=== PATIENT | male | born 1960 | race Caucasian/White ===

== ENCOUNTER → 2018-07-26 08:18 | Outpatient (CLI) | payer OTHER, SELFPAY ==
[2018-07-26 10:35] LABS: ALB/GLOB Ratio 1.3 RATIO (0.9-2.4); AST(SGOT) 20 U/L (15-37); Alanine Aminotransfer ALT/SGPT 28 U/L (16-61); Alkaline Phosphatase 56 U/L (45-117); Anion Gap 9 (5-15); BUN 11 mg/dL (7-18); BUN/Creat Ratio 10.7 RATIO (10-20); Calcium,Total 8.8 mg/dL (8.5-10.1); Chloride 106 mmol/L (98-107); Cholesterol 184 mg/dL (200); Creatinine, Serum 1.03 mg/dL (0.70-1.30); EST Glomerular Filtration Rate 79 mL/min (>60); Est Glom Filt Rate - Afr Amer 96 mL/min (>60); Glucose 83 mg/dL (74-106); High Density Lipoprotein 45 mg/dL; PSA,Total- Diagnostic 1.32 ng/mL (0.0-4.0); Potassium 3.9 mmol/L (3.5-5.1); Sodium Level 142 mmol/L (136-145); Triglycerides 96 mg/dL; Very Low Density Lipoprotein 19 mg/dL (5-40)
== END ==
PROVIDERS: Family Provider Family Medicine; PCP Family Medicine; Referring Provider Family Medicine; Visit Provider Family Medicine
DX: Z00.00 Encounter for general adult medical examination without abnormal findings (principal); Z12.5 Encounter for screening for malignant neoplasm of prostate
CPT/HCPCS: 36415; 80053; 80061; 84153

== ENCOUNTER 2018-08-22 07:50 | Day surgery (SDC) | payer OTHER, SELFPAY ==
[2018-08-22] VITALS (7 sets, daily range): BP systolic 92–137; BP diastolic 56–86; PULSE 69–85; RESP 16–18; TEMP 36.1–36.5; O2SAT 96–100; BMI 24.3
--- NOTE | 2018-08-22 08:44 | PCM.HP.STD ---
Problem List (1) Screening for colon cancer Status: Acute History of Present Illness Date of Admission: 08/22/18 The patient is a 57 year old M who presents for screening colonoscopy. Past Medical History Allergies No Known Allergies Allergy (Verified 08/17/18 13:34) Home Medications: Ambulatory Orders Medication Instructions Recorded NK 08/17/18 Smoking Status: Never smoker - *Family History Maternal History Items: No pertinent history Review of Systems Cardiovascular: Denies: Chest Pain, Chest Pressure, Chest Tightness, Palpitations Respiratory: Denies: Cough, Hemoptysis, Shortness of breath at rest, Shortness of breath upon exertion, Wheezing Gastrointestinal: Denies: Abdominal Pain, Constipation, Diarrhea, Hematemesis, Nausea, Melena, Vomiting VTE Information - Inpt Only VTE Present on Admission: No VTE Mechan Device Prophylaxis: None VTE Pharm Prophylaxis ordered?: No Reason prophylaxis not ordered:: Treatment Not Indicated Patient Problems: Active and Suspected Problems Screening for colon cancer (Acute) - Physical Exam General: Alert, Oriented x3 Lungs: Clear to auscultation Cardiovascular: Regular rate, Regular Rhythm, No murmurs Abdomen: Bowel Sounds Present, Soft, Non Tender, Non-Distended Vital Signs Temp Pulse Resp BP Pulse Ox 97.5 F L 85 18 137/86 H 100 08/22/18 08:10 08/22/18 08:10 08/22/18 08:10 08/22/18 08:10 08/22/18 08:10 Oxygen Delivery Method Room Air Weight: 164 lb 14.492 oz Body Mass Index (BMI) 24.3 Assessment/Plan All Active Problems Screening for colon cancer (Acute) My plan is to perform a colonoscopy. Risk benefits to include bleeding possible injury to the colon which could require further operations. Patient is willing and understands risks. All questions asked were answered.
--- NOTE | 2018-08-22 09:00 | COLBX_PTH ---
PATIENT: YAEL CASH LOC: EN U#:[id number] AGE/SX: 57/M ROOM: RE08/22/[address]: Dr. Vipin Davis MD : 1960 BED: DIS: 08/22/2018 SPEC #: [id number] RECD: 08/22/18 10:30 STATUS: LELAND VELASQUEZ #: [id number] DAYANA: 08/22/18 09:[address]: Vipin Davis DEPT: SURGICAL PATHOLOGY RECD BY: Tomas Barron ENTERED: 08/22/18 14:56 SP TYPE: COLON BX OTHR DR: Dr. Sony Griffith MD Tissues: A - Cecum, NOS B - Rectum, NOS Procedures: Surgery Specimen Level IV HEADER OPERATION: Colonoscopy (MAC) PRE-OP DIAGNOSIS: Screening TISSUE SUBMITTED: A - Cecal polyp biopsy, B - Rectal polyp MICROSCOPIC DIAGNOSIS A. Cecal polyp, biopsy: Fragments of hyperplastic polyp. B. Rectal polyp, biopsy: Fragments of tubular adenoma. SHIRA:shani 08/23/18 MICROSCOPIC DESCRIPTION Slides are reviewed. GROSS DESCRIPTION A - Received in fixative is one container labeled with the patient's name and designated cecal polyp biopsy. The specimen consists of multiple irregular fragments of light paris soft tissue that in aggregate measure 1 x 0.3 x 0.1 cm. The specimen is totally submitted in one cassette. B - Received in fixative is one container labeled with the patient's name and designated rectal polyp. The specimen consists of two polypoid fragments measuring 0.5 and 0.8 cm in greatest dimension and in aggregate 1 x 0.5 x 0.3 cm. The specimen is totally submitted in one cassette. / SHIRA:shani 08/22/18 TC:1 CPT: 88198 x2
--- NOTE | 2018-08-22 09:12 | OP.ENDO_ITS ---
Patient Name: Thelma Mcgrath Procedure Date: 08/22/2018 8:43 AM Date of : 1960 Age: 57 Procedure: Colonoscopy Indications: Screening for colorectal malignant neoplasm Providers: Vipin Davis MD Medicines: See the Anesthesia note for documentation of the administered medications Patient Profile: This is a 57 year old male. Refer to note in patient chart for documentation of history and physical. Last Colonoscopy: none. The patient's first colonoscopy is today. Complications: No immediate complications. Procedure: Pre-Anesthesia Assessment: - Prior to the procedure, a History and Physical was performed, and patient medications and allergies were reviewed. The patient's tolerance of previous anesthesia was also reviewed. The risks and benefits of the procedure and the sedation options and risks were discussed with the patient. All questions were answered, and informed consent was obtained. Prior Anticoagulants: The patient has taken no previous anticoagulant or antiplatelet agents. ASA Grade Assessment: II - A patient with mild systemic disease. After reviewing the risks and benefits, the patient was deemed in satisfactory condition to undergo the procedure. After I obtained informed consent, the scope was passed under direct vision. Throughout the procedure, the patient's blood pressure, pulse, and oxygen saturations were monitored continuously. The adult colonoscope was introduced through the anus and advanced to the cecum, identified by appendiceal orifice and ileocecal valve. The colonoscopy was performed without difficulty. The patient tolerated the procedure well. The quality of the bowel preparation was good. Scope In: 8:55:11 AM Scope Withdrawal Time 0 hours 8 minutes 46 seconds Scope Out: 9:08:26 AM Total Procedure Duration Time 0 hours 13 minutes 15 seconds Findings: The perianal and digital rectal examinations were normal. Pertinent negatives include normal prostate (size, shape, and consistency). A 5 mm polyp was found in the cecum. The polyp was sessile. The polyp was removed with a jumbo cold forceps. Resection and retrieval were complete. A 9 mm polyp was found in the rectum. The polyp was sessile. The polyp was removed with a hot snare. Resection and retrieval were complete. A few small-mouthed diverticula were found in the sigmoid colon. The exam was otherwise without abnormality. Impression: - One 5 mm polyp in the cecum, removed with a jumbo cold forceps. Resected and retrieved. - One 9 mm polyp in the rectum, removed with a hot snare. Resected and retrieved. - Diverticulosis in the sigmoid colon. - The examination was otherwise normal. Recommendation: - Discharge patient to home. - Resume previous diet. - Continue present medications. - Await pathology results. - Repeat colonoscopy in 3 years for surveillance. - Return to my office in 1 week. Procedure Code(s): --- Professional --- 46164, Colonoscopy, flexible; with removal of tumor(s), polyp(s), or other lesion(s) by snare technique 18422, 59, Colonoscopy, flexible; with biopsy, single or multiple Diagnosis Code(s): --- Professional --- Z12.11, Encounter for screening for malignant neoplasm of colon D12.0, Benign neoplasm of cecum K62.1, Rectal polyp K57.30, Diverticulosis of large intestine without perforation or abscess without bleeding CPT copyright 2017 [place] [employer]. All rights reserved. The codes documented in this report are preliminary and upon sales applications engineer review may be revised to meet current compliance requirements. MD Vipin Ritchie MD 08/22/2018 9:12:02 AM This report has been signed electronically. Number of Addenda: 0 Note Initiated On: 08/22/2018 8:43 AM
== END 2018-08-22 10:13 | disposition home or self-care (01) ==
LOC: EN 07:50 → AC 07:51
PROVIDERS: Family Provider Family Medicine; PCP Family Medicine; Referring Provider Surgery; Visit Provider Surgery
PROC: 0DJD8ZZ Inspection of Lower Intestinal Tract, Via Natural or Artificial Opening Endoscopic (ICD-10-PCS; CPT 45378; principal; 2018-08-22 08:55)
DX: Z12.11 Encounter for screening for malignant neoplasm of colon (principal); D12.8 Benign neoplasm of rectum; K63.5 Polyp of colon; K57.30 Diverticulosis of large intestine without perforation or abscess without bleeding
CPT/HCPCS: 45380; 45385; 88305; J7120

== ENCOUNTER → 2021-03-18 07:25 | Outpatient (CLI) | payer OTHER, SELFPAY ==
[2021-03-18 10:22] LABS: Absolute Lymphocyte Count 1.12 X10^3/uL (0.83-4.51); Basophil# 0.02 X10^3/uL; Basophil% 0.3 % (0-1); Eosinophil# 0.09 X10^3/uL; Eosinophils% 1.1 % (0-5); Hematocrit 47.1 % (40-54); Hemoglobin 15.5 g/dL (13.0-16.5); Lymphocyte # 1.12 X10^3/ul (0.83-4.51); Lymphocyte % 14.2 % (19-41); Mean Corp Hgb Conc 32.9 g/dL (32-36); Mean Corpuscular Hgb 31.7 pg (27.0-32.0); Mean Corpuscular Volume 96.3 fL (80-94); Mean Platelet Vol. 9.7 fl (6.2-12.0); Monocyte# 0.65 X10^3/uL; Monocyte% 8.2 % (0-10); NRBC Flagged by Analyzer 0 % (0-5); Neutrophil # 5.96 X10^3/uL (2.7-7.7); Neutrophil % 75.7 % (47-70); Platelet Count 219 K/mm3 (150-450); RBC Distribution Width CV 13.2 % (11.6-14.6); RBC Distribution Width SD 47.2 fl (35.1-43.9); Red Blood Count 4.89 M/mm3 (4.6-6.2); White Blood Count 7.9 K/mm3 (4.4-11.0)
[2021-03-18 10:40] LABS: Cholesterol 167 mg/dL (200); High Density Lipoprotein 50 mg/dL; PSA,Total- Diagnostic 2.79 ng/mL (0.0-4.0); Thyroid Stim Hormone (TSH) 2.01 uIU/mL (0.358-3.74); Triglycerides 82 mg/dL; Very Low Density Lipoprotein 16 mg/dL (5-40)
[2021-03-22 12:08] LABS: Testosterone, Free 26.63 ng/dL (5.00-21.00)
[2021-03-22 12:26] LABS: Testosterone, % Free 3.49 % (1.50-4.20); Testosterone, Total 763 ng/dL (264-916)
== END ==
PROVIDERS: PCP Family Medicine; Referring Provider Family Medicine; Visit Provider Family Medicine
DX: Z00.00 Encounter for general adult medical examination without abnormal findings (principal); N52.9 Male erectile dysfunction, unspecified; Z80.42 Family history of malignant neoplasm of prostate
CPT/HCPCS: 36415; 80061; 84153; 84402; 84403; 84443; 85025

== ENCOUNTER 2021-08-08 07:30 | Day surgery (SDC) | payer OTHER, SELFPAY ==
[2021-08-08] VITALS (7 sets, daily range): BP systolic 94–129; BP diastolic 47–81; PULSE 59–71; RESP 16; TEMP 36.2–36.5; O2SAT 96–100; BMI 23.8
--- NOTE | 2021-08-08 07:41 | HP.PCM_ITS ---
HPI - General HPI Narrative YAEL CASH, is a 60 M who presents for surveillance colonoscopy. 3 years ago he had a tubular adenoma resected from the colon. Denies any bright red blood per rectum or melena. No abdominal pain. No unexpected weight loss. He otherwise feels well. PENDING SALE TO [facility] Medical History Diverticulosis Hyperplastic colon polyp Non-smoker Screening for colon cancer Tubular adenoma Home Medications NK 08/17/18 [History Last Taken Unknown] Allergy/AdvReac Type Severity Reaction Status Date / Time No Known Allergies Allergy Verified 08/01/21 11:54 Surgical History History of colonoscopy Hx of hernia repair Social History (Updated 08/29/18 @ 10:[address] Vipin Davis MD) Smoking Status: Never smoker second hand exposure: No alcohol intake: never substance use type: does not use caffeine: Yes what type of physical activity do you participate in: none ROS Constitutional Constitutional: Reports systems reviewed and no addt'l complaints, except as documented Cardiovascular Cardiovascular: Denies chest pain Respiratory/Chest Respiratory/Chest: Denies shortness of breath at rest Gastrointestinal Gastrointestinal: Denies abdominal pain, change in bowel habits, hematochezia or melena Physical Exam Const alert, oriented x3 and no apparent distress General Appearance: cooperative and comfortable Eyes General Eye: normal appearance of both eyes Neck General: normal visual inspection Chest inspection of chest normal Resp Effort and Inspection: able to speak in complete sentences and symmetric chest movement Auscultation: clear to auscultation bilaterally Cardio regular rate and regular rhythm GI soft to palpation, non-tender and non-distended Extremity no calf tenderness Neuro oriented x3 Psych thought process normal Results Lab / Micro Data Micro: Microbiology 08/07/21 08:34 Interface Orders SARS-CoV-2 Antigen (Rapid) - Final Procedure Criteria Elective Risks - COVID COVID Risk Discussion: Plan to proceed with a colonoscopy with possible biopsy or polypectomy as indicated. He is aware of the technique, benefit, risk and alternatives. He presents via open access. We will proceed as noted. Herminio Murrieta M.D., F.A.C.S.
[2021-08-08] MEDS: Lactated Ringers 1,000 ML 15 ML IV (08:08)
--- NOTE | 2021-08-08 09:34 | OP.COLON_ITS ---
Patient Name: Thelma Mcgrath Procedure Date: 08/08/2021 9:04 AM Date of : 1960 Age: 60 Procedure: Colonoscopy Indications: High risk colon cancer surveillance: Personal history of colonic polyps Providers: Herminio Murrieta MD Referring MD: Herminio Murrieta MD Medicines: See the Anesthesia note for documentation of the administered medications Patient Profile: Last Colonoscopy: 3 years ago. Complications: No immediate complications. Procedure: Pre-Anesthesia Assessment: - Prior to the procedure, a History and Physical was performed, and patient medications and allergies were reviewed. The patient's tolerance of previous anesthesia was also reviewed. The risks and benefits of the procedure and the sedation options and risks were discussed with the patient. All questions were answered, and informed consent was obtained. Prior Anticoagulants: The patient has taken no previous anticoagulant or antiplatelet agents. ASA Grade Assessment: II - A patient with mild systemic disease. After reviewing the risks and benefits, the patient was deemed in satisfactory condition to undergo the procedure. After I obtained informed consent, the scope was passed under direct vision. Throughout the procedure, the patient's blood pressure, pulse, and oxygen saturations were monitored continuously. The pediatric colonoscope was introduced through the anus and advanced to the cecum, identified by appendiceal orifice and ileocecal valve. The colonoscopy was performed without difficulty. The patient tolerated the procedure well. The quality of the bowel preparation was good. The terminal ileum and the appendiceal orifice were photographed. Scope In: 9:16:17 AM Scope Withdrawal Time 0 hours 6 minutes 49 seconds Scope Out: 9:29:04 AM Total Procedure Duration Time 0 hours 12 minutes 47 seconds Findings: The digital rectal exam findings include non-thrombosed internal hemorrhoids and internal hemorrhoids that prolapse with straining, but spontaneously regress to the resting position (Grade II). Pertinent negatives include normal prostate (size, shape, and consistency). The colon (entire examined portion) appeared normal. Impression: - Non-thrombosed internal hemorrhoids and internal hemorrhoids that prolapse with straining, but spontaneously regress to the resting position (Grade II) found on digital rectal exam. - The entire examined colon is normal. - No specimens collected. Recommendation: - Discharge patient to home. - Resume previous diet. - Continue present medications. - Repeat colonoscopy in 5 years for surveillance. Procedure Code(s): --- Professional --- 30615, Colonoscopy, flexible; diagnostic, including collection of specimen(s) by brushing or washing, when performed (separate procedure) Diagnosis Code(s): --- Professional --- Z86.010, Personal history of colonic polyps K64.1, Second degree hemorrhoids CPT copyright 2017 [place] [employer]. All rights reserved. The codes documented in this report are preliminary and upon clinical pharmacologist review may be revised to meet current compliance requirements. Herminio Murrieta MD 08/08/2021 9:33:31 AM This report has been signed electronically. Number of Addenda: 0 Note Initiated On: 08/08/2021 9:04 AM
--- NOTE | 2021-08-08 09:35 | OP.CCLET_ITS ---
08/08/2021 Sony Griffith [address] [facility] [address] [place] [address] Re : Colonoscopy procedure for [facility] Dear Dr. Griffith This procedure was performed on Sunday, August 08, 2021. My impressions and recommendations are as follows: Impressions : - Non-thrombosed internal hemorrhoids and internal hemorrhoids that prolapse with straining, but spontaneously regress to the resting position (Grade II) found on digital rectal exam. - The entire examined colon is normal. - No specimens collected. Recommendations : - Discharge patient to home. - Resume previous diet. - Continue present medications. - Repeat colonoscopy in 5 years for surveillance. My findings are described in the full procedure note, which is enclosed. If I can be of further assistance, please feel free to contact me at Doctor phone number(s): Work: . Sincerely, Herminio Murrieta MD 08/08/2021 9:33:31 AM This report has been signed electronically.
== END 2021-08-08 23:59 | disposition home or self-care (01) ==
LOC: EN 07:34 → AC 07:34
PROVIDERS: PCP Family Medicine; Referring Provider Surgery; Visit Provider Surgery
PROC: 0DJD8ZZ Inspection of Lower Intestinal Tract, Via Natural or Artificial Opening Endoscopic (ICD-10-PCS; CPT 45378; principal; 2021-08-08 08:40)
DX: Z12.11 Encounter for screening for malignant neoplasm of colon (principal); K64.1 Second degree hemorrhoids; Z86.010 Personal history of colon polyps
CPT/HCPCS: 87426; C9803; J7120; J2405

== ENCOUNTER → 2023-01-12 | Outpatient (CLI) | payer OTHER, SELFPAY ==
[2023-01-12 12:58] LABS: Cholesterol 215 mg/dL (200); Creatinine, Serum 0.97 mg/dL (0.70-1.30); EST Glomerular Filtration Rate 83 mL/min (>60); Est Glom Filt Rate - Afr Amer 101 mL/min (>60); High Density Lipoprotein 48 mg/dL; PSA,Total - Annual Screen 2.31 ng/mL (0.00-4.00); Triglycerides 100 mg/dL; Very Low Density Lipoprotein 20 mg/dL (5-40)
== END | disposition home or self-care (01) ==
PROVIDERS: PCP Family Medicine; Referring Provider Family Medicine; Visit Provider Family Medicine
DX: Z00.00 Encounter for general adult medical examination without abnormal findings (principal); Z13.220 Encounter for screening for lipoid disorders; Z80.42 Family history of malignant neoplasm of prostate
CPT/HCPCS: 36415; 80061; 82565; 84153; G0103

== ENCOUNTER 2023-11-25 16:53 | Outpatient (CLI) | payer OTHER, SELFPAY ==
[2023-11-25 18:36] LABS: PSA,Total- Diagnostic 2.14 ng/mL (0.0-4.0)
== END 2023-11-25 23:59 | disposition home or self-care (01) ==
PROVIDERS: PCP Family Medicine; Referring Provider Family Medicine; Visit Provider Family Medicine
DX: K63.5 Polyp of colon (principal); Z80.42 Family history of malignant neoplasm of prostate
CPT/HCPCS: 36415; 84153

== ENCOUNTER → 2024-11-28 | Outpatient (CLI) | payer OTHER, SELFPAY ==
[2024-11-28 11:20] LABS: AST(SGOT) 26 U/L (<=37); Alanine Aminotransfer ALT/SGPT 29 U/L (<=46); Albumin, Serum 4.6 g/dL (3.4-4.8); Alkaline Phosphatase 50 U/L (40-129); Anion Gap 10 (5-15); BUN 19 mg/dL (4-19); BUN/Creat Ratio 19.7 RATIO (10-20); Calcium,Total 9.5 mg/dL (7.6-11.0); Carbon Dioxide 25.2 mmol/L (21.0-32.0); Chloride 104 mmol/L (98-108); Cholesterol 205 mg/dL (<=200); Creatinine, Serum 0.97 mg/dL (0.70-1.20); EST Glomerular Filtration Rate 88 (>60); Globulin 2.2 g/dL (2.2-4.2); Glucose 88 mg/dL (70-99); High Density Lipoprotein 45 mg/dL; Low Density Lipoprotein Calc. 139 mg/dL; PSA,Total - Annual Screen 1.01 ng/mL (0.02-4.00); Protein, Total 6.8 g/dL (5.9-8.4); Sodium Level 140 mmol/L (133-145); Total Bilirubin 0.74 mg/dL (0.00-1.30); Triglycerides 107 mg/dL; Very Low Density Lipoprotein 21 mg/dL (5-40); cholesterol:hdl ratio screen 4.55
== END | disposition home or self-care (01) ==
LOC: MFPLAB 09:10
PROVIDERS: PCP Family Medicine; Referring Provider Family Medicine; Visit Provider Family Medicine
DX: E78.5 Hyperlipidemia, unspecified (principal); Z12.5 Encounter for screening for malignant neoplasm of prostate
CPT/HCPCS: 36415; 80053; 80061; 84153; G0103

== ENCOUNTER → 2025-01-29 | Outpatient (CLI) | payer OTHER, SELFPAY ==
[2025-01-29 17:58] LABS: Hematocrit 43.3 % (40-54); Hemoglobin 14.8 g/dL (13.0-16.5); Mean Corp Hgb Conc 34.2 g/dL (32-36); Mean Corpuscular Volume 90.4 fL (80-94); Mean Platelet Vol. 10.3 fl (6.2-12.0); Platelet Count 195 K/mm3 (150-450); RBC Distribution Width CV 12.5 % (11.6-14.6); RBC Distribution Width SD 41.1 fl (35.1-43.9); Red Blood Count 4.79 M/mm3 (4.6-6.2); White Blood Count 5.8 K/mm3 (4.4-11.0)
[2025-01-29 18:09] LABS: AST(SGOT) 28 U/L (<=37); Alanine Aminotransfer ALT/SGPT 41 U/L (<=46); Albumin, Serum 4.0 g/dL (3.4-4.8); Alkaline Phosphatase 52 U/L (40-129); Anion Gap 12 (5-15); BUN 17 mg/dL (4-19); BUN/Creat Ratio 24.4 RATIO (10-20); Calcium,Total 9.7 mg/dL (7.6-11.0); Carbon Dioxide 21.6 mmol/L (21.0-32.0); Chloride 106 mmol/L (98-108); Globulin 2.4 g/dL (2.2-4.2); Glucose 91 mg/dL (70-99); Potassium 4.2 mmol/L (3.3-5.1)
[2025-01-29 18:11] LABS: CRP < 3.00 mg/L (0.0-3.0)
[2025-01-30 10:05] LABS: Free T3 17.6 pg/mL (2.18-3.98); T4 Total, Thyroxin 18.2 ug/dL (4.5-12.1)
[2025-01-31 16:09] LABS: Lyme Scn Total Ab w/Rflx Negative (Negative); PROEL- A/G Ratio 1.6 (0.7-1.7); PROEL- Albumin 3.8 g/dL (2.9-4.4); PROEL- Alpha-1 Globulin 0.1 g/dL (0.0-0.4); PROEL- Alpha-2 Globulin 0.7 g/dL (0.4-1.0); PROEL- Beta Globulin 0.8 g/dL (0.7-1.3); PROEL- Gamma Globulin 0.7 g/dL (0.4-1.8); PROEL- Globulin, Total 2.4 g/dL (2.2-3.9); PROEL- TOTAL PROTEIN 6.2 g/dL (6.0-8.5); PROEL-M-Spike Not Observed g/dL (Not Observed); Thyroglobulin, Serum Qt. 35.2 ng/mL (1.4-29.2)
== END | disposition home or self-care (01) ==
LOC: MFPLAB 15:48
PROVIDERS: PCP Family Medicine; Visit Provider Family Medicine
DX: E05.90 Thyrotoxicosis, unspecified without thyrotoxic crisis or storm (principal); R53.83 Other fatigue; R53.1 Weakness
CPT/HCPCS: 36415; 80053; 84165; 84432; 84436; 84439; 84443; 84481; 85027; 85652; 86140; 86376; 86618; 86800

== ENCOUNTER → 2025-01-31 | Outpatient (CLI) | payer OTHER, SELFPAY ==
[2025-01-31 13:17] LABS: Free T3 17.3 pg/mL (2.18-3.98); T4 Total, Thyroxin 18.0 ug/dL (4.5-12.1)
[2025-02-01 16:09] LABS: Thyroglobulin, Serum Qt. 32.9 ng/mL (1.4-29.2)
== END | disposition home or self-care (01) ==
LOC: MTLAB 09:35
PROVIDERS: PCP Family Medicine; Referring Provider Family Medicine; Visit Provider Family Medicine
DX: E05.90 Thyrotoxicosis, unspecified without thyrotoxic crisis or storm (principal)
CPT/HCPCS: 36415; 84432; 84436; 84439; 84481; 86376; 86800

== ENCOUNTER → 2025-02-13 | Outpatient (CLI) | payer OTHER, SELFPAY ==
[2025-02-13 19:35] LABS: Free T3 4.7 pg/mL (2.18-3.98)
== END | disposition home or self-care (01) ==
LOC: MTLAB 16:55
PROVIDERS: PCP Family Medicine; Referring Provider Internal Medicine Endocrinology, Diabetes & Metabolism; Visit Provider Internal Medicine Endocrinology, Diabetes & Metabolism
DX: E05.00 Thyrotoxicosis with diffuse goiter without thyrotoxic crisis or storm (principal)
CPT/HCPCS: 36415; 84439; 84481

== ENCOUNTER → 2025-03-30 | Outpatient (CLI) | payer OTHER, SELFPAY ==
--- OUTSIDE RECORDS SUMMARY | 2025-03-30 07:41 | XMS RPT_ITS | CCD ---
Author Organization [facility] Care Team Providers Care Manager Sharepoint Name Role Phone BLAKE GUAMAN Admitting Unavailable ROWENABLAKE LÓPEZ Attending Unavailable BLAKE GUAMAN Primary Care Unavailable Nacho OCHOA, Dr. Cardoza Primary Care Provider [phone] Nacho OCHOA, Dr. Cardoza Attending Provider [phone] Nacho OCHOA, Dr. Cardoza Referring Provider [phone] King DON, Dr. Hong Attending Provider [phone] King DON, Dr. Hong Referring Provider Sony Griffith Primary Care Unavailable Hal Earl Attending Unavailable Hal Earl Referring Unavailable Nacho, Sony Referring Unavailable Griffith, Sony Primary Care Unavailable Griffith, Sony Attending Unavailable Griffith, Sony Primary Care Unavailable Nacho Sony Attending Unavailable Nacho, Sony Primary Care Unavailable Hal Earl Attending Unavailable Griffith, Sony Referring Unavailable Griffith, Sony Referring Unavailable Griffith, Sony Primary Care Unavailable Nacho Sony Attending Unavailable Medications Current Medications Medication Drug Class(es) Dates Sig (Normalized) Sig (Original) methIMAzole 10 mg oral tablet (6 sources) Thyroid Hormone Synthesis Inhibitor Start: 02-05-2025 End: 02-05-2025 take 1 tablet by mouth twice daily Methimazole 10 mg tablet Active 10 mg PO TWICE A DAY 180 1 February 05, 2025 11:49am Problems Problem Classification Problem Date Documented Date Episodic/Chronic Disorders of lipid metabolism (1 source) Hyperlipidemia, unspecified; Translations: [Hyperlipidemia, unspecified] Onset: 12-02-2024 Chronic Immunizations and screening for infectious disease (3 sources) Contact with and (suspected) exposure to other viral communicable diseases; Translations: [Contact with and (suspected) exposure to other viral communicable diseases] Onset: 03-22-2020 Episodic Other and unspecified benign neoplasm (6 sources) Tubular adenoma ; Translations: [Benign neoplasm, unspecified site] 08-29-2018 Episodic Other and unspecified benign neoplasm (1 source) Hyperplastic polyp of large intestine; Translations: [Polyp of colon] 08-29-2018 Episodic Other and unspecified benign neoplasm (5 sources) Polyp of colon; Translations: [Hyperplastic colonic polyp] 08-29-2018 Episodic Other screening for suspected conditions (not mental disorders or infectious disease) (6 sources) Patient encounter status; Translations: [Encounter for screening for malignant neoplasm of colon] 08-29-2018 Episodic Residual codes; unclassified (6 sources) History of hernia repair; Translations: [Other specified postprocedural states] 08-29-2018 Episodic Comment on above: X2 1989, 2013 Thyroid disorders (8 sources) Graves' disease; Translations: [Thyrotoxicosis with diffuse goiter without thyrotoxic crisis or storm] Onset: 02-05-2025 02-05-2025 Chronic Results Test Name Value Interpretation Reference Range Facility Free T3on 02-13-2025 Free T3 [Mass/Vol] 4.7 pg/mL High 2.18-3.98 [facility] Comment on above: Performed By: #### L 500.4100, L500.4050 #### [facility] [address] [place], [place], [id number] Free [id number] By: Hal Earl on 02-13-2025 Free T3 [Mass/Vol] 4.7 pg/mL High 2.18-3.98 [facility] T4 Free Directon 02-13-2025 T4 FREE DIRECT 1.50 ng/dL High 0.76-1.46 [facility] Comment on above: Performed By: #### L 500.4100, L500.4050 #### [facility] [address] [facility] [place], [place], [address] T4 freeOrdered By: Hal Earl on 02-13-2025 Free T4 [Mass/Vol] 1.50 ng/dL High 0.76-1.46 [facility] Endocrinology Visit Reporton 02-05-2025 Endocrinology Visit Report [facility] [address] [place] [address]. [address] [place] [address] OFFICE VISIT Date of Service: 02/05/25 MR#: [id number] Acct: [id number] Name: THELMA CASH Rep #: [id number] : 1960 Provider: Etienne Pantoja Age/Sex: 64/M Location: [facility] [place] Status: Signed Intake Vital Signs 08/08/21 07:56 02/05/25 10:17 Height 5 ft 9 in 5 ft 9 in Weight: 174 lb 8 oz BMI 25.7 BP 153/91 H Blood Pressure Location Lt brachial Position Sitting Pulse 83 Pulse Source Monitor Pulse Oximetry (%) 97 Oxygen Delivery Method room air Intake Visit Reasons: Hyperthyroid Chief Complaint: Thyroid Is patient in pain?: No Allergies No Known Allergies Allergy (Verified 02/05/25 10:22) Medications ???Medication ???Instructions ???Recorded ???Confirmed ???Type methimazole 10 mg tablet 10 mg PO BID #180 tabs 02/05/25 Rx PFSH Medical History (Updated 02/05/25 @ 11:[address] Hal Earl MD) Graves disease Diverticulosis Non-smoker Hyperplastic colon polyp Tubular adenoma Screening for colon cancer Surgical History History of colonoscopy Hx of hernia repair Family History (Updated 02/05/25 @ 10:24 by Avinash Lares RN) Mother H/O thyroidectomy Hypothyroidism Social History (Updated 08/29/18 @ 10:[address] Vipin Davis MD) Smoking Status: Never smoker second hand exposure: No alcohol intake: never substance use type: does not use caffeine: Yes what type of physical activity do you participate in: none HPI HPI Chief Complaint: Thyroid Details: THELMA CASH, is a 64 M who presents to the office today for evaluation and management of hyperthyroidism. Thelma and his report he has had poor sleep and night sweats for about 6 months. More recently, he has lost about 10 pounds, he has rapid heart rate, poor exercise tolerance, decreased concentration. The symptom that is affecting him the most is a tremor. He also has stiff muscles in his neck and calves. TSH < 0.01 T4 18.0 TPO 72 ROS Const Constitutional: Positive for fatigue and weight change; No change in appetite Eyes Eyes: No change in vision ENT ENT: Positive for difficulty swallowing, hoarseness and neck pain; No dizziness/vertigo Cardio Cardiology: Positive for fast heart rate and palpitations; No chest pain at rest, chest pain with exertion or shortness of breath Musc Musculoskeletal: Positive for myalgias and neck pain; No abnormal gait, joint pain, numbness or tingling Neuro Neurology: No abnormal gait, memory loss, numbness or tingling Psych Psychiatric: No change in appetite, Positive for irritability, No memory loss and No Thoughts of harming yourself/Others Resp Respiratory: No cough, chest congestion or shortness of breath Gastro GI: Positive for constipation and difficulty swallowing; No abdominal pain or diarrhea Genitourinary Male: No burning urination Skin Skin: Positive for itchy eyes; No wounds Endo Endocrine: Positive for fatigue and weight change Aller/Imm Allergy/Immunologic : Positive for itchy eyes Exam Const General: cooperative, healthy appearing, comfortable, no acute distress, well developed and not cushingoid Nutritional Appearance: well nourished Orientation: alert, awake and oriented x3 HENMT Head: normal to inspection Ears: hearing grossly normal bilaterally Nose: external nose normal Mouth: oral mucosae normal Eyes General: appearance normal, both eyes and all related structures Alignment and Position: alignment normal Periorbital: periorbital findings abnormal (mild ERASMO, stare of thyrotoxicosis) Eyelids: eyelids normal Conjunctivae: conjunctivae normal Neck Neck: normal visual inspection Neck mass: No Thyroid: diffusely enlarged Carotids: no bruits Lymphatic: no lymphadenopathy noted Chest Chest palpation inspection: normal inspection of the chest Resp Effort Inspection: normal respiratory effort, able to speak in complete sentences, symmetric chest movement, no audible wheezes and no cough Auscultation: Bilateral: Clear to Auscultation Cardio Rate: regular rate Rhythm: regular rhythm Pulses: posterior tibial pulses present Skin General: no rashes or lesions noted Neuro General: patient alert, patient awake and patient oriented x3 Cranial Nerves: CN's II-XI intact bilaterally Cognition: normal cognition Speech: speech normal Gait: normal gait Motor: muscle tone normal throughout and tremor Extrem General: no edema Psych Appearance: grossly normal Mental Status: mental status grossly normal Mood: congruent mood Affect: normal affect Speech and Movement: speech and movement normal Attitude: cooperative Thought Process: normal Thoug (more content not included)... Normal [facility] Thyroglobulin w/Anti-TG ABon 02-01-2025 Anti-TG AB < 1.0 Normal 0.0-0.9 [facility] Comment on above: Result Comment: Thyr oglobulin Antibody measured by Miroslava Alexander Methodology It should be noted that the presence of thyroglobulin antibodies may not be pathogenic nor diagnostic, especially at very low levels. The assay mill and coal transport operator has found that four percent of individuals without evidence of thyroid disease or autoimmunity will have positive TgAb levels up to 4 IU/mL. Performed By: #### L 500.4100, L500.4050 #### [facility] [address] [facility] [address] [place], [place], [id number] THYROGLOB QUANT 32.9 ng/mL High 1.4-29.2 [facility] Comment on above: Result Comment: Acco rding to the National Academy of Clinical Biochemistry, the reference interval for Thyroglobulin (TG) should be related to euthyroid patients and not for patients who underwent thyroidectomy. TG reference intervals for these patients depend on the residual mass of the thyroid tissue left after surgery. Establishing a post-operative baseline is recommended. The assay limit of quantitation is 0.1 ng/mL Thyroglobulin measured by Miroslava Alexander Immunometric Assay Performed By: #### L 500.4100, L500.4050 #### [facility] [address] [facility] [place], [address] Thyroid Peroxidase ABon 080 THYR PEROX AB 72 IU/mL High 0-34 [facility] Comment on above: Result Comment: Perf ormed at: - [facility] [address] [id number] Coupon Collection Clerk: Malick Carlson PhD, Phone: [phone] Performed By: #### L 500.4100, L500.4050 #### [facility] [address] [place], [place], [id number] Free T3on 01-31-2025 Free T3 [Mass/Vol] 17.3 pg/mL High 2.18-3.98 [facility] Comment on above: Order Comment: Order Date: 01/29/25 Order Info: [id number] - CBC Order Info: [id number] - SED Performed By: #### L 100.0500, L101.9900, L3100.3450, L7000.5300, L500.4050, L501.9520, L501.6710 #### [facility] [address] [place], [address] Free [id number] By: Sony rice on 01-31-2025 Free T3 [Mass/Vol] 17.3 pg/mL High 2.18-3.98 [facility] Lyme Screen W/Reflex WBon LYME SCREEN Ab Negative Normal Negative [facility] Comment on above: Order Comment: MARCELO Siddiqi ADD T4 T4F ATAB TPO T3F TO BLOOD DRAWN 01/29/25 PER Order Date: 01/29/25 Order Info: [id number] - PROEL Order Info: [id number] - LYMS Result Comment: Lyme antibodies not detected. Reflex testing is not indicated. No laboratory evidence of infection with B. burgdorferi (Lyme disease). Negative results may occur in patients recently infected (less than or equal to 14 days) with B. burgdorferi. If recent infection is suspected, repeat testing on a new sample collected in 7 to 14 days is recommended. Performed By: #### L 100.0500, L101.9900, L3100.3450, L7000.5300, L500.4050, L501.9520, L501.6710 #### [facility] [address] [place], [place], [id number] Protein Electroph, Son 01-31 Albumin [Mass/Vol] 3.8 g/dL Normal 2.9-4.4 [facility] Comment on above: Order Comment: MARCELO Siddiqi ADD T4 T4F ATAB TPO T3F TO BLOOD DRAWN 01/29/25 PER Order Date: 01/29/25 Order Info: [id number] - PROEL Order Info: [id number] - LYMS Performed By: #### L 100.0500, L101.9900, L3100.3450, L7000.5300, L500.4050, L501.9520, L501.6710 #### [facility] [address] [place], [place], [id number] [phone] Albumin/Globulin [Mass ratio] 1.6 {ratio} Normal 0.7-1.7 [facility] Comment on above: Order Comment: MARCELO Siddiqi ADD T4 T4F ATAB TPO T3F TO BLOOD DRAWN 01/29/25 PER Order Date: 01/29/25 Order Info: 59-06 - PROEL Order Info: [id number] - LYMS Performed By: #### L 100.0500, L101.9900, L3100.3450, L7000.5300, L500.4050, L501.9520, L501.6710 #### [facility] [address] [place], [place], [id number] [phone] ALPHA-1 GLOBUL 0.1 g/dL Normal 0.0-0.4 [facility] Comment on above: Order Comment: MARCELO Siddiqi ADD T4 T4F ATAB TPO T3F TO BLOOD DRAWN 01/29/25 PER Order Date: 01/29/25 Order Info: 59-06 - PROEL Order Info: [id number] - LYMS Performed By: #### L 100.0500, L101.9900, L3100.3450, L7000.5300, L500.4050, L501.9520, L501.6710 #### [facility] [address] [place], [place], [id number] (185) ALPHA-2 GLOBUL 0.7 g/dL Normal 0.4-1.0 [facility] Comment on above: Order Comment: MARCELO Siddiqi ADD T4 T4F ATAB TPO T3F TO BLOOD DRAWN 01/29/25 PER Order Date: 01/29/25 Order Info: 59-06 PROEL Order Info: [id number] - LYMS Performed By: #### L 100.0500, L101.9900, L3100.3450, L7000.5300, L500.4050, L501.9520, L501.6710 #### [facility] [address] [place], [place], [id number] [phone] BETA GLOBULIN 0.8 g/dL Normal 0.7-1.3 [facility] Comment on above: Order Comment: MARCELO Siddiqi ADD T4 T4F ATAB TPO T3F TO BLOOD DRAWN 01/29/25 PER Order Date: 01/29/25 Order Info: [id number] Order Info: [id number] - LYMS Performed By: #### L 100.0500, L101.9900, L3100.3450, L7000.5300, L500.4050, L501.9520, L501.6710 #### [facility] [address] [place], [address] (164) GAMMA GLOBULIN 0.7 g/dL Normal 0.4-1.8 [facility] Comment on above: Order Comment: MARCELO Siddiqi ADD T4 T4F ATAB TPO T3F TO BLOOD DRAWN 01/29/25 PER Order Date: 01/29/25 Order Info: 59-06 Order Info: [id number] - LYMS Performed By: #### L 100.0500, L101.9900, L3100.3450, L7000.5300, L500.4050, L501.9520, L501.6710 #### [facility] [address] [place], [place], [id number] [phone] Globulin (S) [Mass/Vol] 2.4 g/dL Normal 2.2-3.9 [facility] Comment on above: Order Comment: MARCELO Siddiqi ADD T4 T4F ATAB TPO T3F TO BLOOD DRAWN 01/29/25 PER Order Date: 01/29/25 Order Info: [id number] Order Info: [id number] - LYMS Performed By: #### L 100.0500, L101.9900, L3100.3450, L7000.5300, L500.4050, L501.9520, L501.6710 #### [facility] [address] [place], [address] INTERPRETATION Comment Normal . [facility] Comment on above: Order Comment: MARCELO Siddiqi ADD T4 T4F ATAB TPO T3F TO BLOOD DRAWN 01/29/25 PER Order Date: 01/29/25 Order Info: 59-06 - PROEL Order Info: [id number] - LYMS Result Comment: Prot ein electrophoresis scan will follow via computer, mail, or development technologist delivery. Performed By: #### L 100.0500, L101.9900, L3100.3450, L7000.5300, L500.4050, L501.9520, L501.6710 #### [facility] [address] [place], [address] M-SPIKE Not Observed Normal Not Observed [facility] Comment on above: Order Comment: MARCELO Siddiqi ADD T4 T4F ATAB TPO T3F TO BLOOD DRAWN 01/29/25 PER Order Date: 01/29/25 Order Info: 59-06 - PROEL Order Info: [id number] - LYMS Performed By: #### L 100.0500, L101.9900, L3100.3450, L7000.5300, L500.4050, L501.9520, L501.6710 #### [facility] [address] [place], [place], [id number] NOTE: Comment Normal . [facility] Comment on above: Order Comment: MARCELO Siddiqi ADD T4 T4F ATAB TPO T3F TO BLOOD DRAWN 01/29/25 PER Order Date: 01/29/25 Order Info: 59-06 - PROEL Order Info: [id number] - LYMS Result Comment: The SPE pattern appears unremarkable. Evidence of monoclonal protein is not apparent. Performed By: #### L 100.0500, L101.9900, L3100.3450, L7000.5300, L500.4050, L501.9520, L501.6710 #### [facility] [address] [place], [place], [id number] Protein [Mass/Vol] 6.2 g/dL Normal 6.0-8.5 [facility] Comment on above: Order Comment: MARCELO Siddiqi ADD T4 T4F ATAB TPO T3F TO BLOOD DRAWN 01/29/25 PER Order Date: 01/29/25 Order Info: [id number] - PROEL Order Info: [id number] - LYMS Performed By: #### L 100.0500, L101.9900, L3100.3450, L7000.5300, L500.4050, L501.9520, L501.6710 #### [facility] [address] [place], [place], [id number] Serum or plasma thyroperoxid ase antibody assay (units/volume)Ordered By: Sony Griffith on 01-31-2025 TPO Ab Qn 72 [IU]/mL High 0-34 [facility] Comment on above: Performed at: [place] [id number] Director: Malick Carlson PhD, Phone: [phone] T4 Free Directon 01-31-2025 T4 FREE DIRECT 5.10 ng/dL High 0.76-1.46 [facility] Comment on above: Order Comment: Order Date: 01/29/25 Order Info: [id number] - CBC Order Info: [id number] - SED Performed By: #### L 100.0500, L101.9900, L3100.3450, L7000.5300, L500.4050, L501.9520, L501.6710 #### [facility] [address] [place], [place], [id number] T4 Total, Thyroxinon 025 T4 [Mass/Vol] 18.0 ug/dL High 4.5-12.1 [facility] Comment on above: Order Comment: Order Date: 11/28/24 Order Info: [id number] - CMP Order Info: [id number] - LIPID Order Info: [id number] - PSA Performed By: #### L 500.4100, L500.4050 #### [facility] [address] [place], [address] T4 freeOrdered By: Sony rice on 01-31-2025 Free T4 [Mass/Vol] 5.10 ng/dL High 0.76-1.46 [facility] Thyroglobulin w/Anti-TG ABon 01-31-2025 Anti-TG AB < 1.0 Normal 0.0-0.9 [facility] Comment on above: Order Comment: Order Date: 11/28/24 Order Info: [id number] - CMP Order Info: [id number] - LIPID Order Info: [id number]- - PSA Result Comment: Thyr oglobulin Antibody measured by Miroslava Lisandro Methodology It should be noted that the presence of thyroglobulin antibodies may not be pathogenic nor diagnostic, especially at very low levels. The assay mill and coal transport operator has found that four percent of individuals without evidence of thyroid disease or autoimmunity will have positive TgAb levels up to 4 IU/mL. Performed By: #### L 500.4100, L500.4050 #### [facility] [address], [address] THYROGLOB QUANT 35.2 ng/mL High 1.4-29.2 [facility] Comment on above: Order Comment: Order Date: 11/28/24 Order Info: [id number] - CMP Order Info: [id number] - LIPID Order Info: [id number] - PSA Result Comment: Acco rding to the National Academy of Clinical Biochemistry, the reference interval for Thyroglobulin (TG) should be related to euthyroid patients and not for patients who underwent thyroidectomy. TG reference intervals for these patients depend on the residual mass of the thyroid tissue left after surgery. Establishing a post-operative baseline is recommended. The assay limit of quantitation is 0.1 ng/mL Thyroglobulin measured by Miroslava Lisandro Immunometric Assay Performed By: #### L 500.4100, L500.4050 #### [facility] [address] [place], [address] Thyroid Peroxidase ABon 08-0 THYR PEROX AB 70 IU/mL High 0-34 [facility] Comment on above: Order Comment: Order Date: 01/29/25 Order Info: [id number] - CBC Order Info: [id number] - SED Result Comment: Perf ormed at: [facility] [address] [id number] Coupon Collection Clerk: Malick Carlson PhD, Phone: [phone] Performed By: #### L 100.0500, L101.9900, L3100.3450, L7000.5300, L500.4050, L501.9520, L501.6710 #### [facility] [address] [place], [address] ThyroxineOrdered By: Sony perry on 01-31-2025 T4 [Mass/Vol] 18.0 ug/dL High 4.5-12.1 [facility] Free T3on 01-30-2025 Free T3 [Mass/Vol] 17.6 pg/mL High 2.18-3.98 [facility] Comment on above: Order Comment: Order Date: 11/28/24 Order Info: [id number] - CMP Order Info: [id number] - LIPID Order Info: [id number] - PSA Performed By: #### L 500.4100, L500.4050 #### [facility] [address] [place], [address] T4 Free Directon 01-30-2025 T4 FREE DIRECT 5.00 ng/dL High 0.76-1.46 [facility] Comment on above: Order Comment: Order Date: 11/28/24 Order Info: [id number] - CMP Order Info: [id number] - LIPID Order Info: [id number] - PSA Performed By: #### L 500.4100, L500.4050 #### [facility] [address] [place], [address] T4 Total, Thyroxinon 025 T4 [Mass/Vol] 18.2 ug/dL High 4.5-12.1 [facility] Comment on above: Order Comment: Order Date: 11/28/24 Order Info: [id number] - CMP Order Info: [id number] - LIPID Order Info: [id number] - PSA Performed By: #### L 500.4100, L500.4050 #### [facility] [address] [place], [place], [address] Albumin Elph [Mass/Vol]Order ed By: Sony Griffith on 01-29-2025 Albumin [Mass/Vol] 3.8 g/dL 2.9-4.4 [facility] Anion gap in Serum or Plasma Ordered By: Sony Griffith on 01-29-2025 Anion gap [Moles/Vol] 12 mmol/L 5-15 [facility] BUN/creatinine ratioOrdered By: Sony Griffith on 01-29-2025 Urea nitrogen/Creatinine [Mass ratio] 24.4 mg/mg High 10-20 [facility] Bilirubin, totalOrdered By: Sony Griffith on 01-29-2025 Bilirubin [Mass/Vol] 0.55 mg/dL 0.00-1.30 [facility] CBC-Complete Blood Cnt No Di ffon 01-29-2025 Erythrocyte distribution width (RBC) [Ratio] 12.5 % Normal 11.6-14.6 [facility] Comment on above: Order Comment: Order Date: 01/29/25 Order Info: [id number] - CBC Order Info: [id number] - SED Performed By: #### L 100.0500, L101.9900, L3100.3450, L7000.5300, L500.4050, L501.9520, L501.6710 #### [facility] [address] [place], [address] Hematocrit (Bld) [Volume fraction] 43.3 % Normal 40-54 [facility] Comment on above: Order Comment: Order Date: 01/29/25 Order Info: [id number] - CBC Order Info: [id number] - SED Performed By: #### L 100.0500, L101.9900, L3100.3450, L7000.5300, L500.4050, L501.9520, L501.6710 #### [facility] [address] [place], [address] Hemoglobin (Bld) [Mass/Vol] 14.8 g/dL Normal 13.0-16.5 [facility] Comment on above: Order Comment: Order Date: 01/29/25 Order Info: [id number] - CBC Order Info: [id number] - SED Performed By: #### L 100.0500, L101.9900, L3100.3450, L7000.5300, L500.4050, L501.9520, L501.6710 #### [facility] [address] [place], [address] MCH (RBC) [Entitic mass] 30.9 pg Normal 27.0-32.0 [facility] Comment on above: Order Comment: Order Date: 01/29/25 Order Info: [id number] - CBC Order Info: [id number] - SED Performed By: #### L 100.0500, L101.9900, L3100.3450, L7000.5300, L500.4050, L501.9520, L501.6710 #### [facility] [address] [place], [address] MCHC (RBC) [Mass/Vol] 34.2 g/dL Normal 32-36 [facility] Comment on above: Order Comment: Order Date: 01/29/25 Order Info: [id number] - CBC Order Info: [id number] - SED Performed By: #### L 100.0500, L101.9900, L3100.3450, L7000.5300, L500.4050, L501.9520, L501.6710 #### [facility] [address] [place], [address] MCV (RBC) [Entitic vol] 90.4 fL Normal 80-94 [facility] Comment on above: Order Comment: Order Date: 01/29/25 Order Info: [id number] - CBC Order Info: [id number] - SED Performed By: #### L 100.0500, L101.9900, L3100.3450, L7000.5300, L500.4050, L501.9520, L501.6710 #### [facility] [address] [place], [address] Platelet mean volume (Bld) [Entitic vol] 10.3 fL Normal 6.2-12.0 [facility] Comment on above: Order Comment: Order Date: 01/29/25 Order Info: [id number] - CBC Order Info: [id number] - SED Performed By: #### L 100.0500, L101.9900, L3100.3450, L7000.5300, L500.4050, L501.9520, L501.6710 #### [facility] [address] [place], [address] Platelets (Bld) [#/Vol] 195 10*3/uL Normal 150-450 [facility] Comment on above: Order Comment: Order Date: 01/29/25 Order Info: [id number] - CBC Order Info: [id number] - SED Performed By: #### L 100.0500, L101.9900, L3100.3450, L7000.5300, L500.4050, L501.9520, L501.6710 #### [facility] [address] [place], [address] RBC (Bld) [#/Vol] 4.79 10*6/uL Normal 4.6-6.2 [facility] Comment on above: Order Comment: Order Date: 01/29/25 Order Info: [id number] - CBC Order Info: [id number] - SED Performed By: #### L 100.0500, L101.9900, L3100.3450, L7000.5300, L500.4050, L501.9520, L501.6710 #### [facility] [address] [place], [place], [id number] RDW SD 41.1 fl Normal 35.1-43.9 [facility] Comment on above: Order Comment: Order Date: 01/29/25 Order Info: [id number] - CBC Order Info: [id number] - SED Performed By: #### L 100.0500, L101.9900, L3100.3450, L7000.5300, L500.4050, L501.9520, L501.6710 #### [facility] [address] [place], [place], [id number] WBC (Bld) [#/Vol] 5.8 10*3/uL Normal 4.4-11.0 [facility] Comment on above: Order Comment: Order Date: 01/29/25 Order Info: [id number] - CBC Order Info: [id number] - SED Performed By: #### L 100.0500, L101.9900, L3100.3450, L7000.5300, L500.4050, L501.9520, L501.6710 #### [facility] [address] [place], [place], [id number] CRPon 01-29-2025 C-REACTIVE PROT < 3.00 Normal 0.0-3.0 [facility] Comment on above: Order Comment: Order Date: 01/29/25 Order Info: [id number] - CMP Order Info: [id number] - CRP Order Info: [id number] - TSH Performed By: #### L 100.0500, L101.9900, L3100.3450, L7000.5300, L500.4050, L501.9520, L501.6710 #### [facility] [address] [place], [place], [id number] Carbon dioxide, total [Moles /volume] in Central venous bloodOrdered By: Sony Griffith on 01-29-2025 CO2 [Moles/Vol] 21.6 mmol/L 21.0-32.0 [facility] Chloride assayOrdered By: Bernardo Griffith on 01-29-2025 Chloride [Moles/Vol] 106 mmol/L 98-108 [facility] Comprehensive Metabolic Prof ilon 01-29-2025 Albumin [Mass/Vol] 4.0 g/dL Normal 3.4-4.8 [facility] Comment on above: Order Comment: Order Date: 01/29/25 Order Info: [id number] - CMP Order Info: [id number] - CRP Order Info: 3 - TSH Performed By: #### L 100.0500, L101.9900, L3100.3450, L7000.5300, L500.4050, L501.9520, L501.6710 #### [facility] [address] [place], [address] Albumin/Globulin [Mass ratio] 1.6 {ratio} Normal 0.9-2.4 [facility] Comment on above: Order Comment: Order Date: 01/29/25 Order Info: [id number]- - CMP Order Info: [id number] - CRP Order Info: [id number] - TSH Performed By: #### L 100.0500, L101.9900, L3100.3450, L7000.5300, L500.4050, L501.9520, L501.6710 #### [facility] [address] [place], [place], [id number] ALK PHOS 52 U/L Normal 40-129 [facility] Comment on above: Order Comment: Order Date: 01/29/25 Order Info: [id number] - CMP Order Info: [id number] - CRP Order Info: 3 - TSH Performed By: #### L 100.0500, L101.9900, L3100.3450, L7000.5300, L500.4050, L501.9520, L501.6710 #### [facility] [address] [place], [place], [id number] ALT [Catalytic activity/Vol] 41 U/L Normal <=46 [facility] Comment on above: Order Comment: Order Date: 01/29/25 Order Info: [id number] - CMP Order Info: [id number] - CRP Order Info: 3 - TSH Performed By: #### L 100.0500, L101.9900, L3100.3450, L7000.5300, L500.4050, L501.9520, L501.6710 #### [facility] [address] [place], [address] AST [Catalytic activity/Vol] 28 U/L Normal <=37 [facility] Comment on above: Order Comment: Order Date: 01/29/25 Order Info: [id number]- - CMP Order Info: [id number] - CRP Order Info: 3 - TSH Performed By: #### L 100.0500, L101.9900, L3100.3450, L7000.5300, L500.4050, L501.9520, L501.6710 #### [facility] [address] [place], [address] Bilirubin [Mass/Vol] 0.55 mg/dL Normal 0.00-1.30 [facility] Comment on above: Order Comment: Order Date: 01/29/25 Order Info: [id number] - CMP Order Info: [id number] - CRP Order Info: 3 - TSH Performed By: #### L 100.0500, L101.9900, L3100.3450, L7000.5300, L500.4050, L501.9520, L501.6710 #### [facility] [address] [place], [address] BUN/CRE 24.4 RATIO High 10-20 [facility] Comment on above: Order Comment: Order Date: 01/29/25 Order Info: [id number] - CMP Order Info: [id number] - CRP Order Info: 3 - TSH Performed By: #### L 100.0500, L101.9900, L3100.3450, L7000.5300, L500.4050, L501.9520, L501.6710 #### [facility] [address] [place], [address] Calcium [Mass/Vol] 9.7 mg/dL Normal 7.6-11.0 [facility] Comment on above: Order Comment: Order Date: 01/29/25 Order Info: [id number] - CMP Order Info: [id number] - CRP Order Info: 3 - TSH Performed By: #### L 100.0500, L101.9900, L3100.3450, L7000.5300, L500.4050, L501.9520, L501.6710 #### [facility] [address] [place], [address] Chloride [Moles/Vol] 106 mmol/L Normal 98-108 [facility] Comment on above: Order Comment: Order Date: 01/29/25 Order Info: 07 - CMP Order Info: [id number] - CRP Order Info: [id number] - TSH Performed By: #### L 100.0500, L101.9900, L3100.3450, L7000.5300, L500.4050, L501.9520, L501.6710 #### [facility] [address] [place], [address] CO2 [Moles/Vol] 21.6 mmol/L Normal 21.0-32.0 [facility] Comment on above: Order Comment: Order Date: 01/29/25 Order Info: [id number] - CMP Order Info: [id number] - CRP Order Info: 3 - TSH Performed By: #### L 100.0500, L101.9900, L3100.3450, L7000.5300, L500.4050, L501.9520, L501.6710 #### [facility] [address] [place], [address] Creatinine [Mass/Vol] 0.69 mg/dL Low 0.70-1.20 [facility] Comment on above: Order Comment: Order Date: 01/29/25 Order Info: [id number] - CMP Order Info: [id number] - CRP Order Info: 3 - TSH Performed By: #### L 100.0500, L101.9900, L3100.3450, L7000.5300, L500.4050, L501.9520, L501.6710 #### [facility] [address] [place], [place], [id number] GAP 12 Normal 5-15 [facility] Comment on above: Order Comment: Order Date: 01/29/25 Order Info: [id number]- - CMP Order Info: [id number] - CRP Order Info: [id number] - TSH Performed By: #### L 100.0500, L101.9900, L3100.3450, L7000.5300, L500.4050, L501.9520, L501.6710 #### [facility] [address] [place], [address] GFR/1.73 sq M.predicted among non-blacks MDRD (S/P/Bld) [Vol rate/Area] 104 mL/min/{1.73_m2} Normal >60 [facility] Comment on above: Order Comment: Order Date: 01/29/25 Order Info: [id number] - CMP Order Info: [id number] - CRP Order Info: [id number] - TSH Result Comment: mL/m in/1.73m2 CKD-EPI Creatinine Equation (2020) Performed By: #### L 100.0500, L101.9900, L3100.3450, L7000.5300, L500.4050, L501.9520, L501.6710 #### [facility] [address] [place], [address] Globulin (S) [Mass/Vol] 2.4 g/dL Normal 2.2-4.2 [facility] Comment on above: Order Comment: Order Date: 01/29/25 Order Info: [id number] - CMP Order Info: - CRP Order Info: [id number] - TSH Performed By: #### L 100.0500, L101.9900, L3100.3450, L7000.5300, L500.4050, L501.9520, L501.6710 #### [facility] [address] [place], [address] Glucose [Mass/Vol] 91 mg/dL Normal 70-99 [facility] Comment on above: Order Comment: Order Date: 01/29/25 Order Info: [id number] - CMP Order Info: - CRP Order Info: [id number] - TSH Performed By: #### L 100.0500, L101.9900, L3100.3450, L7000.5300, L500.4050, L501.9520, L501.6710 #### [facility] [address] [place], [address] Potassium [Moles/Vol] 4.2 mmol/L Normal 3.3-5.1 [facility] Comment on above: Order Comment: Order Date: 01/29/25 Order Info: [id number] - CMP Order Info: - CRP Order Info: [id number] - TSH Performed By: #### L 100.0500, L101.9900, L3100.3450, L7000.5300, L500.4050, L501.9520, L501.6710 #### [facility] [address] [place], [address] Sodium [Moles/Vol] 140 mmol/L Normal 133-145 [facility] Comment on above: Order Comment: Order Date: 01/29/25 Order Info: [id number] - CMP Order Info: - CRP Order Info: [id number] - TSH Performed By: #### L 100.0500, L101.9900, L3100.3450, L7000.5300, L500.4050, L501.9520, L501.6710 #### [facility] [address] [place], [place], [id number] T PROT 6.4 g/dL Normal 5.9-8.4 [facility] Comment on above: Order Comment: Order Date: 01/29/25 Order Info: [id number] - CMP Order Info: [id number] - CRP Order Info: [id number] - TSH Performed By: #### L 100.0500, L101.9900, L3100.3450, L7000.5300, L500.4050, L501.9520, L501.6710 #### [facility] [address] [place], [address] Urea nitrogen [Mass/Vol] 17 mg/dL Normal 4-19 [facility] Comment on above: Order Comment: Order Date: 01/29/25 Order Info: [id number] - CMP Order Info: [id number] - CRP Order Info: [id number] - TSH Performed By: #### L 100.0500, L101.9900, L3100.3450, L7000.5300, L500.4050, L501.9520, L501.6710 #### [facility] [address] [place], [place], [id number] Erythrocyte Sed Rateon 01-29 SED RATE 9 mm/hr Normal 0-20 [facility] Comment on above: Order Comment: Order Date: 01/29/25 Order Info: [id number] - CBC Order Info: [id number] - SED Performed By: #### L 100.0500, L101.9900, L3100.3450, L7000.5300, L500.4050, L501.9520, L501.6710 #### [facility] [address] [place], [place], [id number] Erythrocyte distribution wid th ratioOrdered By: Sony Griffith on 01-29-2025 Erythrocyte distribution width (RBC) [Ratio] 12.5 % 11.6-14.6 [facility] Erythrocyte distribution wid th standard deviationOrdered By: Sony Griffith on 01-29-2025 Erythrocyte distribution width (RBC) [Ratio] 41.1 fl 35.1-43.9 [facility] Erythrocyte sedimentation ra teOrdered By: Sony Griffith on 01-29-2025 ESR (Bld) [Velocity] 9 mm/h 0-20 [facility] Free [id number] By: Sony rice on 01-29-2025 Free T3 [Mass/Vol] 17.6 pg/mL High 2.18-3.98 [facility] Glomerular filtration rate ( GFR) estimation/1.73 sq m using serum, plasma, or whole bOrdered By: Sony Griffith on 01-29-2025 GFR/1.73 sq M.predicted among non-blacks MDRD (S/P/Bld) [Vol rate/Area] 104 mL/min/{1.73_m2} >60 [facility] Comment on above: mL/min/1.73m2 CKD-EP I Creatinine Equation (2020) Hematocrit Auto (Bld) [Volum e fraction]Ordered By: Sony Griffith on 01-29-2025 Hematocrit (Bld) [Volume fraction] 43.3 % 40-54 [facility] Hemoglobin measurementOrdere d By: Sony Griffith on 01-29-2025 Hemoglobin (Bld) [Mass/Vol] 14.8 g/dL 13.0-16.5 [facility] - Chemistry and C hemistry - challengeOrdered By: Sony Griffith on 01-29-2025 AST [Catalytic activity/Vol] 28 U/L <38 [facility] MCV (mean corpuscular volume ) determinationOrdered By: Sony Griffith on 01-29-2025 MCV (RBC) [Entitic vol] 90.4 fL 80-94 [facility] Mean corpuscular hemoglobin (MCH) determinationOrdered By: Sony Griffith on 01-29-2025 MCH (RBC) [Entitic mass] 30.9 pg 27.0-32.0 [facility] Mean corpuscular hemoglobin concentration (MCHC) determinationOrdered By: Soyn Griffith on 01-29-2025 MCHC (RBC) [Mass/Vol] 34.2 g/dL 32-36 [facility] Mean platelet volume determi nationOrdered By: Sony Griffith on 01-29-2025 Platelet mean volume (Bld) [Entitic vol] 10.3 fL 6.2-12.0 [facility] No Panel InformationOrdered By: Sony Griffith on 01-29-2025 Addendum Document Comment . [facility] Comment on above: The SPE pattern appe ars unremarkable. Evidence ofmonoclonal protein is not apparent. Platelet countOrdered By: Bernardo Griffith on 01-29-2025 Platelets (Bld) [#/Vol] 195 10*3/uL 150-450 [facility] Potassium measurement (mass/ volume)Ordered By: Sony Griffith on 01-29-2025 Potassium (Unsp spec) [Mass/Vol] 4.2 mmol/L 3.3-5.1 [facility] Protein Fractions Elph [Inte rp]Ordered By: Sony Griffith on 01-29-2025 Protein Fractions [Interp] Comment . [facility] Comment on above: Protein electrophore sis scan will follow via computer,mail, or development technologist delivery. RBC Auto (Bld) [#/Vol]Ordere d By: Sony Griffith on 01-29-2025 RBC (Bld) [#/Vol] 4.79 10*6/uL 4.6-6.2 [facility] Serum albumin to globulin ra mat by protein electrophoresisOrdered By: Sony Griffith on 01-29-2025 Albumin/Globulin Elph [Mass ratio] 1.6 0.7-1.7 [facility] Serum creatinine measurement (mass/volume)Ordered By: Sony Griffith on 01-29-2025 Creatinine [Mass/Vol] 0.69 mg/dL Low 0.70-1.20 [facility] Serum globulin measurementOr dered By: Sony Griffith on 01-29-2025 Globulin (S) [Mass/Vol] 2.4 g/dL 2.2-3.9 [facility] Serum glucose measurement (m ass/volume)Ordered By: Sony Griffith on 01-29-2025 Glucose [Mass/Vol] 91 mg/dL 70-99 [facility] Serum or plasma C reactive p rotein measurement (mass/volume)Ordered By: Sony Griffith on 01-29-2025 CRP [Mass/Vol] mg/L 0.0-3.0 [facility] Serum or plasma alanine obando otransferase (ALT) measurementOrdered By: Sony Griffith on 01-29-2025 ALT [Catalytic activity/Vol] 41 U/L <47 [facility] Serum or plasma albumin tony urement (mass/volume)Ordered By: Sony Griffith on 01-29-2025 Albumin [Mass/Vol] 4.0 g/dL 3.4-4.8 [facility] Serum or plasma albumin/glob ulin mass ratioOrdered By: Sony Griffith on 01-29-2025 Albumin/Globulin [Mass ratio] 1.6 {ratio} 0.9-2.4 [facility] Serum or plasma alkaline michael sphatase measurementOrdered By: Sony Griffith on 01-29-2025 ALP [Catalytic activity/Vol] 52 U/L 40-129 [facility] Serum or plasma beta globuli n measurement by electrophoresis (mass/volume)Ordered By: Sony Griffith on 01-29-2025 Beta globulin Elph [Mass/Vol] 0.8 g/dL 0.7-1.3 [facility] Serum or plasma calcium tony urement (mass/volume)Ordered By: Sony Griffith on 01-29-2025 Calcium [Mass/Vol] 9.7 mg/dL 7.6-11.0 [facility] Serum or plasma protein tony urement (mass/volume)Ordered By: Sony Griffith on 01-29-2025 Protein [Mass/Vol] 6.2 g/dL 6.0-8.5 [facility] Serum or plasma protein mono clonal measurement by electrophoresis (mass/volume)Ordered By: Sony Griffith on 01-29-2025 Protein.monoclonal Elph [Mass/Vol] Not Observed g/dL Not Observed [facility] Serum or plasma thyroperoxid ase antibody assay (units/volume)Ordered By: Sony Griffith on 01-29-2025 TPO Ab Qn 70 [IU]/mL High 0-34 [facility] Comment on above: Performed at: [address] [id number] Director: Malick Carlson PhD, Phone: [phone] Serum or plasma urea nitroge n measurement (mass/volume)Ordered By: Sony Griffith on 01-29-2025 Urea nitrogen [Mass/Vol] 17 mg/dL 4-19 [facility] Sodium levelOrdered By: Sony Griffith on 01-29-2025 Sodium [Moles/Vol] 140 mmol/L 133-145 [facility] T4 freeOrdered By: Sony rice on 01-29-2025 Free T4 [Mass/Vol] 5.00 ng/dL High 0.76-1.46 [facility] TSH DL <= 0.005 mIU/L QnOrde red By: Sony Griffith on 01-29-2025 TSH Qn 0.005 uIU/mL Low 0.300-4.200 [facility] Thyroid Stim Hormone (TSH)on 01-29-2025 TSH 0.005 uIU/mL Low 0.300-4.200 [facility] Comment on above: Order Comment: Order Date: 01/29/25 Order Info: [id number] - CMP Order Info: [id number] - CRP Order Info: [id number] - TSH Performed By: #### L 100.0500, L101.9900, L3100.3450, L7000.5300, L500.4050, L501.9520, L501.6710 #### [facility] [address] [place], [place], [id number] ThyroxineOrdered By: Sony perry on 01-29-2025 T4 [Mass/Vol] 18.2 ug/dL High 4.5-12.1 [facility] Total proteinOrdered By: Constance Griffith on 01-29-2025 Protein [Mass/Vol] 6.4 g/dL 5.9-8.4 [facility] White blood cell (WBC) count Ordered By: Sony Griffith on 01-29-2025 WBC (Bld) [#/Vol] 5.8 10*3/uL 4.4-11.0 [facility] Anion gap in Serum or Plasma Ordered By: Sony Griffith on 11-28-2024 Anion gap [Moles/Vol] 10 mmol/L 5-15 [facility] BUN/creatinine ratioOrdered By: Sony Griffith on 11-28-2024 Urea nitrogen/Creatinine [Mass ratio] 19.7 mg/mg 10-20 [facility] Bilirubin, totalOrdered By: Sony Griffith on 11-28-2024 Bilirubin [Mass/Vol] 0.74 mg/dL 0.00-1.30 [facility] Calculated very low density lipoprotein (VLDL) cholesterol measurementOrdered By: Sony Griffith on 11-28-2024 Calculated very low density lipoprotein (VLDL) cholesterol measurement 21 mg/dL 5-40 [facility] Carbon dioxide, total [Moles /volume] in Central venous bloodOrdered By: Sony Griffith on 11-28-2024 CO2 [Moles/Vol] 25.2 mmol/L 21.0-32.0 [facility] Chloride assayOrdered By: Bernardo Griffith on 11-28-2024 Chloride [Moles/Vol] 104 mmol/L 98-108 [facility] Comprehensive Metabolic Prof ilon 11-28-2024 Albumin [Mass/Vol] 4.6 g/dL Normal 3.4-4.8 [facility] Comment on above: Order Comment: Order Date: 11/28/24 Order Info: [id number] - CMP Order Info: [id number] - LIPID Order Info: [id number] - PSA Performed By: #### L 500.4100, L500.4050 #### [facility] [address] [place] [id number] Albumin/Globulin [Mass ratio] 2.0 {ratio} Normal 0.9-2.4 [facility] Comment on above: Order Comment: Order Date: 11/28/24 Order Info: [id number] - CMP Order Info: [id number] - LIPID Order Info: [id number] - PSA Performed By: #### L 500.4100, L500.4050 #### [facility] [address] [place], [address] ALK PHOS 50 U/L Normal 40-129 [facility] Comment on above: Order Comment: Order Date: 11/28/24 Order Info: [id number] - CMP Order Info: [id number] - LIPID Order Info: [id number] - PSA Performed By: #### L 500.4100, L500.4050 #### [facility] [address] [place], [address] ALT [Catalytic activity/Vol] 29 U/L Normal <=46 [facility] Comment on above: Order Comment: Order Date: 11/28/24 Order Info: [id number] - CMP Order Info: [id number] - LIPID Order Info: [id number] - PSA Performed By: #### L 500.4100, L500.4050 #### [facility] [address] [place], [address] AST [Catalytic activity/Vol] 26 U/L Normal <=37 [facility] Comment on above: Order Comment: Order Date: 11/28/24 Order Info: 86-1 - CMP Order Info: [id number] - LIPID Order Info: [id number] - PSA Performed By: #### L 500.4100, L500.4050 #### [facility] [address] [place], [address] Bilirubin [Mass/Vol] 0.74 mg/dL Normal 0.00-1.30 [facility] Comment on above: Order Comment: Order Date: 11/28/24 Order Info: [id number] - CMP Order Info: [id number] - LIPID Order Info: [id number] - PSA Performed By: #### L 500.4100, L500.4050 #### [facility] [address] [place], [address] BUN/CRE 19.7 RATIO Normal 10-20 [facility] Comment on above: Order Comment: Order Date: 11/28/24 Order Info: [id number] - CMP Order Info: [id number] - LIPID Order Info: [id number] - PSA Performed By: #### L 500.4100, L500.4050 #### [facility] [address] [place], [address] Calcium [Mass/Vol] 9.5 mg/dL Normal 7.6-11.0 [facility] Comment on above: Order Comment: Order Date: 11/28/24 Order Info: 86-1 - CMP Order Info: [id number] - LIPID Order Info: [id number] - PSA Performed By: #### L 500.4100, L500.4050 #### [facility] [address] [place], [address] Chloride [Moles/Vol] 104 mmol/L Normal 98-108 [facility] Comment on above: Order Comment: Order Date: 11/28/24 Order Info: 86-1 - CMP Order Info: [id number] - LIPID Order Info: [id number] - PSA Performed By: #### L 500.4100, L500.4050 #### [facility] [address] [place], [address] CO2 [Moles/Vol] 25.2 mmol/L Normal 21.0-32.0 [facility] Comment on above: Order Comment: Order Date: 11/28/24 Order Info: [id number] - CMP Order Info: [id number] - LIPID Order Info: [id number] - PSA Performed By: #### L 500.4100, L500.4050 #### [facility] [address] [place], [address] Creatinine [Mass/Vol] 0.97 mg/dL Normal 0.70-1.20 [facility] Comment on above: Order Comment: Order Date: 11/28/24 Order Info: 86-1 - CMP Order Info: [id number] - LIPID Order Info: [id number] - PSA Performed By: #### L 500.4100, L500.4050 #### [facility] [address] [place], [address] GAP 10 Normal 5-15 [facility] Comment on above: Order Comment: Order Date: 11/28/24 Order Info: [id number] - CMP Order Info: [id number] - LIPID Order Info: [id number] - PSA Performed By: #### L 500.4100, L500.4050 #### [facility] [address] [place], [address] GFR/1.73 sq M.predicted among non-blacks MDRD (S/P/Bld) [Vol rate/Area] 88 mL/min/{1.73_m2} Normal >60 [facility] Comment on above: Order Comment: Order Date: 11/28/24 Order Info: [id number] - CMP Order Info: [id number] - LIPID Order Info: [id number] - PSA Result Comment: mL/m in/1.73m2 CKD-EPI Creatinine Equation (2020) Performed By: #### L 500.4100, L500.4050 #### [facility] [address] [place], [address] Globulin (S) [Mass/Vol] 2.2 g/dL Normal 2.2-4.2 [facility] Comment on above: Order Comment: Order Date: 11/28/24 Order Info: [id number] - CMP Order Info: [id number] - LIPID Order Info: [id number] - PSA Performed By: #### L 500.4100, L500.4050 #### [facility] [address] [place], [address] Glucose [Mass/Vol] 88 mg/dL Normal 70-99 [facility] Comment on above: Order Comment: Order Date: 11/28/24 Order Info: [id number]- - CMP Order Info: [id number] - LIPID Order Info: [id number] - PSA Performed By: #### L 500.4100, L500.4050 #### [facility] [address] [place], [address] Potassium [Moles/Vol] 4.0 mmol/L Normal 3.3-5.1 [facility] Comment on above: Order Comment: Order Date: 11/28/24 Order Info: [id number] - CMP Order Info: [id number] - LIPID Order Info: [id number] - PSA Performed By: #### L 500.4100, L500.4050 #### [facility] [address] [place], [place], [id number] Sodium [Moles/Vol] 140 mmol/L Normal 133-145 [facility] Comment on above: Order Comment: Order Date: 11/28/24 Order Info: [id number] - CMP Order Info: [id number] - LIPID Order Info: [id number] - PSA Performed By: #### L 500.4100, L500.4050 #### [facility] [address] [place], [address] T PROT 6.8 g/dL Normal 5.9-8.4 [facility] Comment on above: Order Comment: Order Date: 11/28/24 Order Info: [id number] - CMP Order Info: [id number] - LIPID Order Info: [id number] - PSA Performed By: #### L 500.4100, L500.4050 #### [facility] [address] [place], [address] Urea nitrogen [Mass/Vol] 19 mg/dL Normal 4-19 [facility] Comment on above: Order Comment: Order Date: 11/28/24 Order Info: [id number] - CMP Order Info: [id number] - LIPID Order Info: [id number] - PSA Performed By: #### L 500.4100, L500.4050 #### [facility] [address] [place], [address] Glomerular filtration rate ( GFR) estimation/1.73 sq m using serum, plasma, or whole bOrdered By: Sony Griffith on 11-28-2024 GFR/1.73 sq M.predicted among non-blacks MDRD (S/P/Bld) [Vol rate/Area] 88 mL/min/{1.73_m2} >60 [facility] Comment on above: mL/min/1.73m2 CKD-EP I Creatinine Equation (2020) LDL calc ser/plasOrdered By: Sony Griffith on 11-28-2024 Cholesterol in LDL [Mass/Vol] 139 mg/dL [facility] Comment on above: Feasnjlgaq=371-443 m g/dL & Higher Yjph=129 mg/dL or greater Laboratory - Chemistry and C hemistry - challengeOrdered By: Sony Griffith on 11-28-2024 AST [Catalytic activity/Vol] 26 U/L <38 [facility] Lipid Profileon 11-28-2024 CHOL:HDL 4.55 Normal [facility] Comment on above: Order Comment: Order Date: 11/28/24 Order Info: [id number] - CMP Order Info: [id number] - LIPID Order Info: [id number] - PSA Performed By: #### L 500.4100, L500.4050 #### [facility] [address] [place], [place], [id number] Cholesterol [Mass/Vol] 205 mg/dL High <=200 [facility] Comment on above: Order Comment: Order Date: 11/28/24 Order Info: [id number] - CMP Order Info: [id number] - LIPID Order Info: [id number] - PSA Result Comment: Chol esterol level, Desirable <200 mg/dL Borderline high cholesterol 200-239 mg/dL High cholesterol >=240 mg/dL Recommendations of the NCEP Adult Treatment Panel for the following risk-cutoff thresholds for the [place] population. Performed By: #### L 500.4100, L500.4050 #### [facility] [address] [place], [place], [address] Cholesterol in HDL [Mass/Vol] 45 mg/dL Normal [facility] Comment on above: Order Comment: Order Date: 11/28/24 Order Info: [id number] - CMP Order Info: [id number] - LIPID Order Info: [id number] - PSA Result Comment: Marnie onal Cholesterol Education Program (NCEP) guidelines: <40 mg/dL: Low HDL-cholesterol (major risk factor for CHD) >= 60 mg/dL: High HDL-cholesterol (negative risk factor for CHD) HDL-cholesterol is affected by a number of factors, e.g. smoking, exercise, hormones, sex and age. Performed By: #### L 500.4100, L500.4050 #### [facility] [address] [place], [address] Cholesterol in LDL [Mass/Vol] 139 mg/dL Normal [facility] Comment on above: Order Comment: Order Date: 11/28/24 Order Info: [id number] - CMP Order Info: [id number] - LIPID Order Info: [id number] - PSA Result Comment: Bord vmoblo=219-139 mg/dL Higher Kqph=469 mg/dL or greater Performed By: #### L 500.4100, L500.4050 #### [facility] [address] [place], [address] Cholesterol in VLDL [Mass/Vol] 21 mg/dL Normal 5-40 [facility] Comment on above: Order Comment: Order Date: 11/28/24 Order Info: 07 - CMP Order Info: [id number] - LIPID Order Info: [id number] - PSA Performed By: #### L 500.4100, L500.4050 #### [facility] [address] [place], [address] Triglyceride [Mass/Vol] 107 mg/dL Normal [facility] Comment on above: Order Comment: Order Date: 11/28/24 Order Info: [id number] - CMP Order Info: [id number] - LIPID Order Info: [id number] - PSA Result Comment: The drugs N-Acetylcysteine and Metamizole may falsely depress this assay. Normal range: <150 mg/dL Borderline High: 150-199 mg/dL High: 200-499 mg/dL Very High: >500 mg/dL Performed By: #### L 500.4100, L500.4050 #### [facility] [address] [place], [address] PSA,Total - Annual Screenon 11-28-2024 PSA,TOT SCREEN 1.01 ng/mL Normal 0.02-4.00 [facility] Comment on above: Order Comment: Order Date: 11/28/24 Order Info: [id number] - CMP Order Info: [id number] - LIPID Order Info: [id number] - PSA Result Comment: This test was performed using the [employer] tPSA method. Measured values of a patient??sample can vary depending on the testing procedure used. PSA values determined on patient samples by different testing procedures cannot be used interchangeably. If there is a change in PSA assays while monitoring therapy, sequential testing should be performed to confirm baseline values. Performed By: #### L 500.4100, L500.4050 #### [facility] [address] [place], [address] Potassium measurement (mass/ volume)Ordered By: Sony Griffith on 11-28-2024 Potassium (Unsp spec) [Mass/Vol] 4.0 mmol/L 3.3-5.1 [facility] Screening total cholesterol/ high density lipoprotein (HDL) cholesterol ratioOrdered By: Sony Griffith on 11-28-2024 Cholesterol.total/Choleste rol in HDL [Mass ratio] 4.55 {ratio} [facility] Serum creatinine measurement (mass/volume)Ordered By: Sony Griffith on 11-28-2024 Creatinine [Mass/Vol] 0.97 mg/dL 0.70-1.20 [facility] Serum globulin measurementOr dered By: Sony Griffith on 11-28-2024 Globulin (S) [Mass/Vol] 2.2 g/dL 2.2-4.2 [facility] Serum glucose measurement (m ass/volume)Ordered By: Sony Griffith on 11-28-2024 Glucose [Mass/Vol] 88 mg/dL 70-99 [facility] Serum or plasma alanine obando otransferase (ALT) measurementOrdered By: Sony Griffith on 11-28-2024 ALT [Catalytic activity/Vol] 29 U/L <47 [facility] Serum or plasma albumin tony urement (mass/volume)Ordered By: Sony Griffith on 11-28-2024 Albumin [Mass/Vol] 4.6 g/dL 3.4-4.8 [facility] Serum or plasma albumin/glob ulin mass ratioOrdered By: Sony Griffith on 11-28-2024 Albumin/Globulin [Mass ratio] 2.0 {ratio} 0.9-2.4 [facility] Serum or plasma alkaline michael sphatase measurementOrdered By: Sony Griffith on 11-28-2024 ALP [Catalytic activity/Vol] 50 U/L 40-129 [facility] Serum or plasma calcium tony urement (mass/volume)Ordered By: Sony Griffith on 11-28-2024 Calcium [Mass/Vol] 9.5 mg/dL 7.6-11.0 [facility] Serum or plasma cholesterol in HDL measurement (mass/volume)Ordered By: Sony Griffith on 11-28-2024 Cholesterol in HDL [Mass/Vol] 45 mg/dL >40 [facility] Comment on above: National Cholesterol Education Program (NCEP) guidelines:<40 mg/dL: Low HDL-cholesterol (major risk factor for CHD)>= 60 mg/dL: High HDL-cholesterol (negative risk factor for CHD)HDL-cholesterol is affected by a number of factors, e.g. smoking, exercise, hormones, sex and age. Serum or plasma cholesterol measurement (mass/volume)Ordered By: Sony Griffith on 11-28-2024 Cholesterol [Mass/Vol] 205 mg/dL High <201 [facility] Comment on above: Cholesterol level, D esirable <200 mg/dLBorderline high cholesterol 200-239 mg/dLHigh cholesterol >=240 mg/dLRecommendations of the NCEP Adult Treatment Panel for the following risk-cutoff thresholds for the [place] population. Serum or plasma urea nitroge n measurement (mass/volume)Ordered By: Sony Griffith on 11-28-2024 Urea nitrogen [Mass/Vol] 19 mg/dL 4-19 [facility] Sodium levelOrdered By: Sony Griffith on 11-28-2024 Sodium [Moles/Vol] 140 mmol/L 133-145 [facility] Total proteinOrdered By: Constance Griffith on 11-28-2024 Protein [Mass/Vol] 6.8 g/dL 5.9-8.4 [facility] Triglycerides measurementOrd ered By: Sony Griffith on 11-28-2024 Triglyceride [Mass/Vol] 107 mg/dL <199 [facility] Comment on above: The drugs N-Acetylcy steine and Metamizole may falsely depress this assay. Normal range: <150 mg/dLBorderline High: 150-199 mg/dLHigh: 200-499 mg/dLVery High: >500 mg/dL Basophil percentageOrdered B y: Sony Griffith on 01-12-2023 Cholesterol [Mass/Vol] 215 mg/dL <200 [facility] Comment on above: <200 mg/dL Desirable 200-240 mg/dL Borderline >240 mg/dL High Risk Triglyceride [Mass/Vol] 100 mg/dL <199 [facility] Comment on above: The drugs N-Acetylcy steine and Metamizole may falsely depress this assay.Serum Triglycerides Reference Interval Normal <150 mg/dL Borderline high 150 - 199 mg/dL High 200 - 499 mg/dL Very High > or = 500 mg/dL No Panel InformationOrdered By: Sony Griffith on 01-12-2023 Estimated GFR (MDRD) Amer 101 mL/min >60 [facility] Comment on above: GFR Calc Estimated GFR (MDRD) Non-Af Amer 83 mL/min >60 [facility] Comment on above: Non- GFR Calc Prostate Specific Antigen Screen 2.31 ng/mL 0.00-4.00 [facility] Comment on above: This test was perfor med using the TPSA assay method for the[employer] chemistry system. Values obtained with differentassay methods cannot be used interchangably.When changing PSA assays in the course of monitoring apatient, additional sequential testing should be carriedout to confirm baseline values. Serum or plasma cholesterol in HDL measurement (mass/volume)Ordered By: Sony Griffith on 01-12-2023 Cholesterol in HDL [Mass/Vol] 48 mg/dL >40 [facility] Comment on above: The drugs N-Acetylcy steine and Metamizole may falsely depress this assay. Reference Range HDL <40 mg/dL Low HDL Cholesterol HDL >or= 60 mg/dL High HDL Cholesterol Serum or plasma cholesterol in VLDL measurement (mass/volume)Ordered By: Sony Griffith on 01-12-2023 Cholesterol in VLDL [Mass/Vol] 20 mg/dL 5-40 [facility] Serum or plasma creatinine m easurement (mass/volume)Ordered By: Sony Griffith on 01-12-2023 Creatinine [Mass/Vol] 0.97 mg/dL 0.70-1.30 [facility] Comment on above: The validity of the calculated GFR & GFRAA in patients over 70 years has not been determined. Clinical correlation is essential. Serum or plasma low density lipoprotein (LDL) cholesterol measurement (mass/volume)Ordered By: Sony Griffith on 01-12-2023 Cholesterol in LDL [Mass/Vol] 147 mg/dL 0-130 [facility] CORONAVIRUS PCR [CCL]on 02-27 REF LAB REPORT Negative Normal [facility] Comment on above: Performed By: #### [id number] #### [facility],[address] [place] [address] COVID 19 Result TRENCH TRIMMER FINE Negative Normal [facility] Comment on above: Result Comment: Nega tive for COVID19 (SARS CoV2) by PCR. This test was developed and its performance characteristics determined by [facility] [place]. This test has been authorized by FDA under an Emergency Use Authorization (EUA). This test has been validated in accordance with the FDA's Guidance Document Policy for Diagnostics Testing in Laboratories Certified to Perform High Complexity Testing under CLIA prior to Emergency use Authorization for Coronavirus Disease 2019 during the Public Health Emergency issued on August 26, 2019. [id number] [place] [address] Deshaun Randolph III, M.D. [id number] Performed By: #### 2 [id number] #### [address] [address] COVID 19 Source TRENCH TRIMMER FINE Nasopharyngeal Swab Normal [facility] Comment on above: Performed By: #### 2 [id number] #### [facility],[address] [place] [address] Coronavirus 2019on 0 COVID 19 Result TRENCH TRIMMER FINE Normal Negative for COVID19 (SARS CoV2) by PCR. [facility] Comment on above: Result Comment: Nega tive for This test was developed and its performance characteristics determined by [facility] [place]. This test has been authorized by FDA under an Emergency Use Authorization (EUA). This test has been validated in accordance with the FDA's Guidance Document Policy for Diagnostics Testing in Laboratories Certified to Perform High Complexity Testing under CLIA prior to Emergency use Authorization for Coronavirus Disease 2019 during the Public Health Emergency issued on August 26, 2019. COVID19 (SARS This test was developed and its performance characteristics determined by [facility] [place]. This test has been authorized by FDA under an Emergency Use Authorization (EUA). This test has been validated in accordance with the FDA's Guidance Document Policy for Diagnostics Testing in Laboratories Certified to Perform High Complexity Testing under CLIA prior to Emergency use Authorization for Coronavirus Disease 2019 during the Public Health Emergency issued on August 26, 2019. CoV2) by PCR. This test was developed and its performance characteristics determined by [facility] [place]. This test has been authorized by FDA under an Emergency Use Authorization (EUA). This test has been validated in accordance with the FDA's Guidance Document Policy for Diagnostics Testing in Laboratories Certified to Perform High Complexity Testing under CLIA prior to Emergency use Authorization for Coronavirus Disease 2019 during the Public Health Emergency issued on August 26, 2019. Coronavirus 2019on 0 COVID 19 Source TRENCH TRIMMER FINE TRENCH TRIMMER FINE Normal [facility] Vital Signs Date Time Vital Sign Value Performing Clinician Thierno cancino 02-05-2025 10:17-040 Body height 175.[address] Sony Griffith MD Work Phone: [facility] 02-05-2025 10:17-0400 Body mass index (BMI) [Ratio] 25.7 kg/m2 Dr. Sony Griffith MD Work Phone: [facility] 02-05-2025 10:17-0400 Body weight 79.[address] Sony Griffith MD Work Phone: [facility] 02-05-2025 10:17-0400 Diastolic blood pressure 91 mm[Hg] Dr. Sony Griffith MD Work Phone: [facility] 02-05-2025 10:17-0400 Heart rate 83 /min Dr. Sony Griffith MD Work Phone: [facility] 02-05-2025 10:17-0400 SaO2% (BldA) [Mass fraction] 97 % Dr. Sony Griffith MD Work Phone: [facility] 02-05-2025 10:17-0400 Systolic blood pressure 153 mm[Hg] Dr. Sony Griffith MD Work Phone: [facility] Encounters Encounter Date Encounter Type Care Provider Facility Start: 02-13-2025 End: 02-13-[address] Sony Griffith MD Work Phone: -[facility] Start: 02-13-2025 End: 02-13-[address] Hal Earl MD -[facility] Work Phone: Start: 02-13-2025 End: 02-13-2025 ambulatory Sony Griffith Facility:[facility] Start: 02-05-2025 End: 02-05-[address] Hal Earl MD -[facility] Work Phone: Start: 02-05-2025 End: 02-05-[address] Sony Griffith MD Work Phone: [facility] Start: 01-31-2025 End: 01-31-[address] Sony Griffith MD Work Phone: -[facility] Start: 01-31-2025 End: 01-31-[address] Sony Griffith MD -[facility] Work Phone: Start: 01-31-2025 End: 01-31-2025 ambulatory Sony Griffith Facility:[facility] Start: 01-29-2025 End: 01-29-[address] Snoy Griffith MD Work Phone: -[facility] Start: 01-29-2025 End: 01-29-[address] Sony Griffith MD -[facility] Start: 01-29-2025 End: 01-29-2025 ambulatory Sony Griffith Facility:[facility] Start: 11-28-2024 End: 11-28-[address] Sony Griffith MD Work Phone: [facility] Work Phone: Start: 11-28-2024 End: 11-28-[address] Sony Griffith MD -[facility] Start: 11-28-2024 End: 11-28-2024 ambulatory Sony Griffith Facility:[facility] Start: 01-12-2023 End: 01-12-2023 ambulatory [facility] Work Phone: Start: 01-12-2023 End: 01-12-2023 Patient encounter procedure [facility], [place] Work Phone: Start: 03-22-2020 End: 03-22-2020 Patient encounter procedure BLAKE Siddiqi ROWENA [facility] Procedures Date Procedure Procedure Detail Performing Clinician Start: 01-31-[address] Sony Griffith MD Work Phone: Comment on above: According to the [facility] Academy of Clinical Biochemistry,the reference interval for Thyroglobulin (TG) should berelated to euthyroid patients and not for patients whounderwent thyroidectomy. TG reference intervals for thesepatients depend on the residual mass of the thyroid tissueleft after surgery. Establishing a post-operative baselineis recommended. The assay limit of quantitation is 0.1ng/mLThyroglobulin measured by Miroslava Alexander [employer] Start: 01-31-[address]o dy measurement [address] Sony Griffith MD Work Phone: Comment on above: Thyroglobulin Antibo dy measured by Miroslava CoulterMethodologyIt should be noted that the presence of thyroglobulinantibodies may not be pathogenic nor diagnostic, especiallyat very low levels. The assay mill and coal transport operator has found thatfour percent of individuals without evidence of thyroiddisease or autoimmunity will have positive TgAb levels upto 4 IU/mL. Start: 01-29-2025 Electrophoresis: [id number] Dr. Sony Griffith MD Work Phone: Start: 01-29-2025 Electrophoresis: [id number] Dr. Sony Griffith MD Work Phone: Start: 01-29-2025 Electrophoresis: gamma globulin Dr. Sony Griffith MD Work Phone: Start: 01-29-2025 Measurement of Borre conrad burgdorferi antibody Dr. Sony Griffith MD Work Phone: Comment on above: Lyme antibodies not detected. Reflex testing is notindicated.No laboratory evidence of infection with B. burgdorferi(Lyme disease). Negative results may occur in patientsrecently infected (less than or equal to 14 days) with B.burgdorferi. If recent infection is suspected, repeattesting on a new sample collected in 7 to 14 days isrecommended. Start: 01-29-[address] Sony Griffith MD Work Phone: Comment on above: According to the [facility] Academy of Clinical Biochemistry,the reference interval for Thyroglobulin (TG) should berelated to euthyroid patients and not for patients whounderwent thyroidectomy. TG reference intervals for thesepatients depend on the residual mass of the thyroid tissueleft after surgery. Establishing a post-operative baselineis recommended. The assay limit of quantitation is 0.1ng/mLThyroglobulin measured by Miroslava Alexander [employer] Start: 01-29-2025 [address] antibo dy measurement Dr. Sony Griffith MD Work Phone: Comment on above: Thyroglobulin Antibo dy measured by Miroslava CoulterMethodologyIt should be noted that the presence of thyroglobulinantibodies may not be pathogenic nor diagnostic, especiallyat very low levels. The assay mill and coal transport operator has found thatfour percent of individuals without evidence of thyroiddisease or autoimmunity will have positive TgAb levels upto 4 IU/mL. Start: 11-28-2024 Prostate specific an tigen measurement Dr. Sony Griffith MD Work Phone: Comment on above: This test was perfor med using the [employer] tPSA method. Measured values of a patient sample can vary depending on the testing procedure used. PSA values determined on patient samples by different testing procedures cannot be used interchangeably. If there is a change in PSA assays while monitoring therapy, sequential testing should be performed to confirm baseline values. Plan of Treatment Date Care Activity Detail Author T4 free measurement [facility] Triiodothyronine, free measurement [facility] Immunizations Immunization Date Immunization Notes Care Provider Fa jorge 05-30-2021 Covid (Moderna) [facility] Payers Date Payer Category Payer Self-pay [id number] 2024 Unknown [id number] 1960 Unknown [id number] [id number] [id number] Unknown [id number] [address] [facility] [id number] Unknown [id number] 2.16.8 [id number] Unknown [id number] 2.16.8 [id number] Unknown [id number] 2.16.8 [id number] Unknown [id number] 2.16.8 [id number] Unknown [id number] 2.16.8 [id number] Social History Date Type Detail Facility Start: 08-01-2021 Tobacco smoking stat [facility] Unknown if ever smoked [facility] Start: 1960 Sex Assigned At Male [facility] Start: 08-01-2021 [facility] Evaluation note 02-05-2025 Note Date & Type Note Facility 02-05-2025 Evaluation note Diagnosis Onset Date Resolution Graves disease acute January 10:20am [facility] Work Phone: Evaluation note Note Date & Type Note Facility Evaluation note No assessment information availa ble [facility] Work Phone: Evaluation note Note Date & Type Note Facility Evaluation note Diagnosis Onset Date Resolution Graves disease acute January 10:20am [facility] Work Phone: Reason for referral (narrative) Note Date & Type Note Facility Reason for referral (narrative) No reason for referral information available [facility] Work Phone: Summary Purpose Family History No Family History Records Found Relationship Condition Age at Onset Recorded Date/T neftaly Unknown Family History?No pe rtinent history Unknown August 22, 2018 9:45am Family History?No pe rtinent history Unknown August 22, 2018 9:45am Relationship Condition Age at Onset Recorded Date/T neftaly mother History of thyroidectomy Unknown Hypothyroidism Unknown Advance Directives No Advanced Directives Records Found Advance Directive Response Recorded Date/ Time Living Will No August 01 12:55pm Power of Lighting Fixture Installer No August 01, 2021 12:55pm Chief Complaint and Reason for Visit Chief Complaint EORDER Chief Complaint Admit Date EORDERS January 31, 2025 9:3 5am Chief Complaint Admit Date EORDERS January 31, 2025 9:3 5am Hyperthyroid February 05, 2025 10 :20am Reason for Visit Admit Date Graves disease February 05, 2025 10 :20am Chief Complaint Admit Date EORDERS January 31, 2025 9:3 5am Hyperthyroid February 05, 2025 10 :20am EORDERS February 13, 2025 4: 54pm Additional Source Comments (unrecognized sect ion and content) No Status Records FoundNo Status Records Found INFORMATION SOURCE (unrecogn ized section and content) DATE CREATED AUTHOR 03/24/2020 [facility] DATE CREATED AUTHOR AUTHOR'S ORGANIZ ATION 03/26/2020 [facility] DATE CREATED AUTHOR AUTHOR'S ORGANIZ ATION 02/20/2025 [facility] Care Teams (unrecognized sec tion and content) Team Status: Active Member Role Status Dates Dr. Sony Griffith MD Family Provider Active Dr. Sony Griffith MD Primary Care Provider Active Team Status: Inactive Member Role Status Dates Dr. Sony Griffith MD Primary Care Provide r, Attending Provider, Referring Provider Active Team Status: Inactive Member Role Status Dates Dr. Sony Griffith MD Primary Care Provider Active Start: November 28, 2024 End: November 28, 2024 Dr. Sony Griffith MD Attending Provider Active St art: November 28, 2024 End: November 28, 2024 Dr. Sony Griffith MD Referring Provider Active St art: November 28, 2024 End: November 28, 2024 Team Status: Active Member Role/Relationship Status Dates Dr. Sony Griffith MD Family Provider Active Dr. Sony Griffith MD Primary Care Provider Active Team Status: Inactive Member Role/Relationship Status Dates Dr. Sony Griffith MD Primary Care Provider Active Start: November 28, 2024 End: November 28, 2024 Dr. Sony Griffith MD Attending Provider Active St art: November 28, 2024 End: November 28, 2024 Dr. Sony Griffith MD Referring Provider Active St art: November 28, 2024 End: November 28, 2024 Team Status: Inactive Member Role/Relationship Status Dates Dr. Sony Griffith MD Primary Care Provider Active Start: January 29, 2025 End: January 29, 2025 Dr. Sony Griffith MD Attending Provider Active St art: January 29, 2025 End: January 29, 2025 Team Status: Active Member Role/Relationship Status Dates Dr. Sony Griffith MD Primary Care Provider Active Start: January 31, 2025 Dr. Sony Griffith MD Attending Provider Active St art: January 31, 2025 Dr. Sony Griffith MD Referring Provider Active St art: January 31, 2025 Team Status: Inactive Member Role/Relationship Status Dates Dr. Sony Griffith MD Primary Care Provider Active Start: February 05, 2025 End: February 05, 2025 Dr. Sony Griffith MD Referring Provider Active St art: February 05, 2025 End: February 05, 2025 Dr. Hal Earl MD Attending Provider Active Sta rt: February 05, 2025 End: February 05, 2025 Team Status: Inactive Member Role/Relationship Status Dates Dr. Sony Griffith MD Primary Care Provider Active Start: January 31, 2025 End: January 31, 2025 Dr. Sony Griffith MD Attending Provider Active St art: January 31, 2025 End: January 31, 2025 Dr. Sony Griffith MD Referring Provider Active St art: January 31, 2025 End: January 31, 2025 Team Status: Inactive Member Role/Relationship Status Dates Dr. Sony Griffith MD Primary Care Provider Active Start: February 13, 2025 End: February 13, 2025 Dr. Hal Earl MD Attending Provider Active Sta rt: February 13, 2025 End: February 13, 2025 Dr. Hal Earl MD Referring Provider Active Sta rt: February 13, 2025 End: February 13, 2025 Goals (unrecognized section and content) Goals may be documented in a n alternate sectionGoals may be documented in an alternate sectionGoals may be documented in an alternate sectionGoals may be documented in an alternate sectionGoals may be documented in an alternate sectionGoals may be documented in an alternate section FOR RECORDS PERTAINING TO PATIENTS WHO ARE OR HAVE BEEN ENROLLED IN A CHEMICAL DEPENDENCY/SUBSTANCEABUSE PROGRAM, SOME INFORMATION MAY BE OMITTED. This clinical summary was aggregated from multiple sources. Caution should be exercised in using it in the provision of clinical care. This summary normalizes information from multiple sources, and as a consequence, information in this document may materially change the coding, format and clinical context of patient data. In addition, data may be omitted in some cases. CLINICAL DECISIONS SHOULD BE BASED ON THE PRIMARY CLINICAL RECORDS. [facility]. provides no warranty or guarantee of the accuracy or completeness of information in this document.
--- OUTSIDE RECORDS SUMMARY | 2025-03-30 07:41 | XMS RPT_ITS | CCD ---
Author Organization [facility] Care Team Providers Care Gis Consultant Name Role Phone BLAKE GUAMAN Admitting Unavailable ROWENABLAKE LÓPEZ Attending Unavailable BLAKE GUAMAN Primary Care Unavailable Nacho OCHOA, Dr. Cardoza Primary Care Provider [phone] Nacho OCHOA, Dr. Cardoza Attending Provider [phone] Nacho OCHOA, Dr. Cardoza Referring Provider [phone] King DON, Dr. Hong Attending Provider King DON, Dr. Hong Referring Provider Sony [...] Free T3 [Mass/Vol] 4.7 pg/mL High 2.18-3.98 [facility] Comment on above: Performed By: #### L 500.4100, L500.4050 #### [facility] [address] [place], [place], [phone] Free R8Uatbads By: Hal Earl on 02-13-2025 Free T3 [Mass/Vol] 4.7 pg/mL High 2.18-3.98 [facility] T4 Free Directon 02-13-2025 T4 FREE DIRECT 1.50 ng/dL High 0.76-1.46 [facility] Comment on above: Performed By: #### L 500.4100, L500.4050 #### [facility] [address] [facility] [place], [place], [address] T4 freeOrdered By: Hal Earl on 02-13-2025 Free T4 [Mass/Vol] 1.50 ng/dL High 0.76-1.46 [facility] Endocrinology Visit Reporton 02-05-2025 Endocrinology Visit Report [facility] [address] [place] [address]. [address] [place] [address] OFFICE VISIT Date of Service: 02/05/25 MR#: [id number] Acct: [id number] Name: THELMA CASH Rep #: [id number] : 1960 Provider: Etienne Pantoja Age/Sex: 64/M [place] [facility] [place]: Signed Intake Vital Signs 08/08/21 07:56 [...] normal Thoug (more content not included)... Normal [facility] Thyroglobulin w/Anti-TG ABon 02-01-2025 Anti-TG AB < 1.0 Normal 0.0-0.9 [facility] Comment on above: Result Comment: Thyr oglobulin Antibody measured by [facility] [place] Methodology It should be noted that the presence of thyroglobulin antibodies may not be pathogenic nor diagnostic, especially at very low levels. The assay job trainer has found that four percent of individuals without evidence of thyroid disease or autoimmunity will have positive TgAb levels up to 4 IU/mL. Performed By: #### L 500.4100, L500.4050 #### [facility] [address] [place], [place], [id number] THYROGLOB QUANT 32.9 ng/mL High 1.4-29.2 [facility] Comment on above: Result Comment: Acco rding [...] is 0.1 ng/mL Thyroglobulin measured by [facility] [place] Immunometric Assay Performed By: #### L 500.4100, L500.4050 #### [facility] [address] [place] [place], [address] Thyroid Peroxidase ABon 080 THYR PEROX AB 72 IU/mL High 0-34 [facility] Comment on above: Result Comment: Perf ormed at: - [facility] [address] [id number] [employer] Plant Operator: Malick Carlson PhD, Phone: [phone] Performed By: #### L 500.4100, L500.4050 #### [facility] [address] [place], [place], [id number] Free T3on 01-31-2025 Free T3 [Mass/Vol] 17.3 pg/mL High 2.18-3.98 [facility] Comment on above: Order Comment: Order Date: 01/29/25 Order Info: [id number] - CBC Order Info: [id number] - SED Performed By: #### L 100.0500, L101.9900, L3100.3450, L7000.5300, L500.4050, L501.9520, L501.6710 #### [facility] [address] [place], [address] Free X1Madqghw By: Sony rice on 01-31-2025 Free T3 [Mass/Vol] 17.3 pg/mL High 2.18-3.98 [facility] Lyme Screen W/Reflex WBon LYME SCREEN Ab Negative Normal Negative [facility] Comment on above: Order Comment: MARCELO Siddiqi [...] L101.9900, L3100.3450, L7000.5300, L500.4050, L501.9520, L501.6710 #### [facility] [address] [place], [place], [address] Protein Electroph, Son 01-31 Albumin [Mass/Vol] 3.8 g/dL Normal 2.9-4.4 [facility] Comment on above: Order Comment: MARCELO Siddiqi ADD T4 T4F ATAB TPO T3F TO BLOOD DRAWN 01/29/25 PER Order Date: 01/29/25 Order Info: 0060-1 - PROEL Order Info: 9586-9 - LYMS Performed By: #### L 100.0500, L101.9900, L3100.3450, L7000.5300, L500.4050, L501.9520, L501.6710 #### [facility] [address] [place], [place], [phone] Albumin/Globulin [Mass ratio] 1.6 {ratio} Normal 0.7-1.7 [facility] Comment on above: Order Comment: MARCELO Siddiqi ADD T4 T4F ATAB TPO T3F TO BLOOD DRAWN 01/29/25 PER Order Date: 01/29/25 Order Info: 59-06 - PROEL Order Info: 9586-9 - LYMS Performed By: #### L 100.0500, L101.9900, L3100.3450, L7000.5300, L500.4050, L501.9520, L501.6710 #### [facility] [address] [place], [place], [phone] ALPHA-1 GLOBUL 0.1 g/dL Normal 0.0-0.4 [facility] Comment on above: Order Comment: MARCELO Siddiqi ADD T4 T4F ATAB TPO T3F TO BLOOD DRAWN 01/29/25 PER Order Date: 01/29/25 Order Info: 59-06 - PROEL Order Info: 9586-9 - LYMS Performed By: #### L 100.0500, L101.9900, L3100.3450, L7000.5300, L500.4050, L501.9520, L501.6710 #### [facility] [address] [place], [place], [phone]) ALPHA-2 GLOBUL 0.7 g/dL Normal 0.4-1.0 [facility] Comment on above: Order Comment: MARCELO Siddiqi ADD T4 T4F ATAB TPO T3F TO BLOOD DRAWN 01/29/25 PER Order Date: 01/29/25 Order Info: 59-06 PROEL Order Info: 9586-9 - LYMS Performed By: #### L 100.0500, L101.9900, L3100.3450, L7000.5300, L500.4050, L501.9520, L501.6710 #### [facility] [address] [facility] [place], [place], [phone] BETA GLOBULIN 0.8 g/dL Normal 0.7-1.3 [facility] Comment on above: Order Comment: MARECLO Siddiqi ADD T4 T4F ATAB TPO T3F TO BLOOD DRAWN 01/29/25 PER Order Date: 01/29/25 Order Info: 59-06EL Order Info: 9586-9 - LYMS Performed By: #### L 100.0500, L101.9900, L3100.3450, L7000.5300, L500.4050, L501.9520, L501.6710 #### [facility] [address] [place], [address] [phone] GAMMA GLOBULIN 0.7 g/dL Normal 0.4-1.8 [facility] Comment on above: Order Comment: MARCELO Siddiqi ADD T4 T4F ATAB TPO T3F TO BLOOD DRAWN 01/29/25 PER Order Date: 01/29/25 Order Info: 59-06 Order Info: 9586-9 - LYMS Performed By: #### L 100.0500, L101.9900, L3100.3450, L7000.5300, L500.4050, L501.9520, L501.6710 #### [facility] [address] [place], [place], [phone] Globulin (S) [Mass/Vol] 2.4 g/dL Normal 2.2-3.9 [facility] Comment on above: Order Comment: MARCELO Siddiqi ADD T4 T4F ATAB TPO T3F TO BLOOD DRAWN 01/29/25 PER Order Date: 01/29/25 Order Info: 59-06EL Order Info: 9586-9 - LYMS Performed By: #### L 100.0500, L101.9900, L3100.3450, L7000.5300, L500.4050, L501.9520, L501.6710 #### [facility] [address] [place], [address] INTERPRETATION Comment Normal . [facility] Comment on above: Order Comment: MARCELO Siddiqi ADD T4 T4F ATAB TPO T3F TO BLOOD DRAWN 01/29/25 PER Order Date: 01/29/25 Order Info: 59-06 - PROEL Order Info: 9586-9 - LYMS Result Comment: Prot ein electrophoresis scan will follow via computer, mail, or nurse wound care delivery. Performed By: #### L 100.0500, L101.9900, L3100.3450, L7000.5300, L500.4050, L501.9520, L501.6710 #### [facility] [address] [place], [address] M-SPIKE Not Observed Normal Not Observed [facility] Comment on above: Order Comment: MARCELO Siddiqi ADD T4 T4F ATAB TPO T3F TO BLOOD DRAWN 01/29/25 PER Order Date: 01/29/25 Order Info: 59-06 - PROEL Order Info: 9586-9 - LYMS Performed By: #### L 100.0500, L101.9900, L3100.3450, L7000.5300, L500.4050, L501.9520, L501.6710 #### [facility] [address] [place], [place], [id number] NOTE: Comment Normal . [facility] Comment on above: Order Comment: MARCELO Siddiqi ADD T4 T4F ATAB TPO T3F TO BLOOD DRAWN 01/29/25 PER Order Date: 01/29/25 Order Info: 59-06 - PROEL Order Info: 9586-9 - LYMS Result Comment: The SPE pattern appears unremarkable. Evidence of monoclonal protein is not apparent. Performed By: #### L 100.0500, L101.9900, L3100.3450, L7000.5300, L500.4050, L501.9520, L501.6710 #### [facility] [address] [place], [place], [address] Protein [Mass/Vol] 6.2 g/dL Normal 6.0-8.5 [facility] Comment on above: Order Comment: MARCELO Siddiqi ADD T4 T4F ATAB TPO T3F TO BLOOD DRAWN 01/29/25 PER Order Date: 01/29/25 Order Info: 0060-1 - PROEL Order Info: 9586-9 - LYMS Performed By: #### L 100.0500, L101.9900, L3100.3450, L7000.5300, L500.4050, L501.9520, L501.6710 #### [facility] [address] [place], [place], [address] Serum or plasma thyroperoxid ase antibody assay (units/volume)Ordered By: Sony Griffith on 01-31-2025 TPO Ab Qn 72 [IU]/mL High 0-34 [facility] Comment on above: Performed at: [place] [id number] Director: Malick Carlson PhD, Phone: [phone] T4 Free Directon 01-31-2025 T4 FREE DIRECT 5.10 ng/dL High 0.76-1.46 [facility] Comment on above: Order Comment: Order Date: 01/29/25 Order Info: [id number] - CBC Order Info: 05524-0 - SED Performed By: #### L 100.0500, L101.9900, L3100.3450, L7000.5300, L500.4050, L501.9520, L501.6710 #### [facility] [address] [place], [place], [phone] T4 Total, Thyroxinon 025 T4 [Mass/Vol] 18.0 ug/dL High 4.5-12.1 [facility] Comment on above: Order Comment: Order Date: 11/28/24 Order Info: 0786-1 - CMP Order Info: [id number] - LIPID Order Info: 2857-1 - PSA Performed By: #### L 500.4100, L500.4050 #### [facility] [address] [place], [address] T4 freeOrdered By: Sony rice on 01-31-2025 Free T4 [Mass/Vol] 5.10 ng/dL High 0.76-1.46 [facility] Thyroglobulin w/Anti-TG ABon 01-31-2025 Anti-TG AB < 1.0 Normal 0.0-0.9 [facility] Comment on above: Order Comment: Order Date: 11/28/24 Order Info: 0786-1 - CMP Order Info: [id number] - LIPID Order Info: 2857- - PSA Result Comment: Thyr oglobulin Antibody measured by [facility]rosl[facility] [place] Methodology It should be noted that the presence of thyroglobulin antibodies may not be pathogenic nor diagnostic, especially at very low levels. The assay job trainer has found that four percent of individuals without evidence of thyroid disease or autoimmunity will have positive TgAb levels up to 4 IU/mL. Performed By: #### L 500.4100, L500.4050 #### [facility] [address], [address] THYROGLOB QUANT 35.2 ng/mL High 1.4-29.2 [facility] Comment on above: Order Comment: Order Date: 11/28/24 Order Info: 0786-1 - CMP Order Info: [id number] - LIPID Order Info: 2857-1 - PSA [...] Performed By: #### L 500.4100, L500.4050 #### [facility] [address] [place], [address] Thyroid Peroxidase ABon 08-0 THYR PEROX AB 70 IU/mL High 0-34 [facility] Comment on above: Order Comment: Order Date: 01/29/25 Order Info: [id number] - CBC Order Info: [id number] - SED Result Comment: Perf ormed at: [facility] [address] [id number] Fl[employer] Plant Operator: Malick Carlson PhD, Phone: [phone] Performed By: #### L 100.0500, L101.9900, L3100.3450, L7000.5300, L500.4050, L501.9520, L501.6710 #### [facility] [address] [place], [address] ThyroxineOrdered By: Sony perry on 01-31-2025 T4 [Mass/Vol] 18.0 ug/dL High 4.5-12.1 [facility] Free T3on 01-30-2025 Free T3 [Mass/Vol] 17.6 pg/mL High 2.18-3.98 [facility] Comment on above: Order Comment: Order Date: 11/28/24 Order Info: 0786-1 - CMP Order Info: [id number] - LIPID Order Info: 2857-1 - PSA Performed By: #### L 500.4100, L500.4050 #### [facility] [address] [place], [address] T4 Free Directon 01-30-2025 T4 FREE DIRECT 5.00 ng/dL High 0.76-1.46 [facility] Comment on above: Order Comment: Order Date: 11/28/24 Order Info: 0786-1 - CMP Order Info: [id number] - LIPID Order Info: 2857-1 - PSA Performed By: #### L 500.4100, L500.4050 #### [facility] [address] [place], [address] T4 Total, Thyroxinon 025 T4 [Mass/Vol] 18.2 ug/dL High 4.5-12.1 [facility] Comment on above: Order Comment: Order Date: 11/28/24 Order Info: 0786-1 - CMP Order Info: [id number] - LIPID Order Info: 2857-1 - PSA Performed By: #### L 500.4100, L500.4050 #### [facility] [address] [place], [place], [address] Albumin Elph [Mass/Vol]Order ed By: Sony Griffith on 01-29-2025 Albumin [Mass/Vol] 3.8 g/dL 2.9-4.4 [facility] Anion gap in Serum or Plasma Ordered By: Sony Griffith on 01-29-2025 Anion gap [Moles/Vol] 12 mmol/L 5-15 [facility] BUN/creatinine ratioOrdered By: Sony Griffith on 01-29-2025 Urea nitrogen/Creatinine [Mass ratio] 24.4 mg/mg High 10-20 [facility] Bilirubin, totalOrdered By: Sony Griffith on 01-29-2025 Bilirubin [Mass/Vol] 0.55 mg/dL 0.00-1.30 [facility] CBC-Complete Blood Cnt No Di ffon 01-29-2025 Erythrocyte distribution width (RBC) [Ratio] 12.5 % Normal 11.6-14.6 [facility] Comment on above: Order Comment: Order Date: 01/29/25 Order Info: [id number] - CBC Order Info: 06354-1 - SED Performed By: #### L 100.0500, L101.9900, L3100.3450, L7000.5300, L500.4050, L501.9520, L501.6710 #### [facility] [address] [place], [address] Hematocrit (Bld) [Volume fraction] 43.3 % Normal 40-54 [facility] Comment on above: Order Comment: Order Date: 01/29/25 Order Info: [id number] - CBC Order Info: [id number] - SED Performed By: #### L 100.0500, L101.9900, L3100.3450, L7000.5300, L500.4050, L501.9520, L501.6710 #### [facility] [address] [place], [address] Hemoglobin (Bld) [Mass/Vol] 14.8 g/dL Normal 13.0-16.5 [facility] Comment on above: Order Comment: Order Date: 01/29/25 Order Info: [id number] - CBC Order Info: 72658-8 - SED Performed By: #### L 100.0500, L101.9900, L3100.3450, L7000.5300, L500.4050, L501.9520, L501.6710 #### [facility] [address] [place], [address] MCH (RBC) [Entitic mass] 30.9 pg Normal 27.0-32.0 [facility] Comment on above: Order Comment: Order Date: 01/29/25 Order Info: [id number] - CBC Order Info: [id number] - SED Performed By: #### L 100.0500, L101.9900, L3100.3450, L7000.5300, L500.4050, L501.9520, L501.6710 #### [facility] [address] [place], [address] MCHC (RBC) [Mass/Vol] 34.2 g/dL Normal 32-36 [facility] Comment on above: Order Comment: Order Date: 01/29/25 Order Info: [id number] - CBC Order Info: [id number] - SED Performed By: #### L 100.0500, L101.9900, L3100.3450, L7000.5300, L500.4050, L501.9520, L501.6710 #### [facility] [address] [place], [address] MCV (RBC) [Entitic vol] 90.4 fL Normal 80-94 [facility] Comment on above: Order Comment: Order Date: 01/29/25 Order Info: [id number] - CBC Order Info: 91203-0 - SED Performed By: #### L 100.0500, L101.9900, L3100.3450, L7000.5300, L500.4050, L501.9520, L501.6710 #### [facility] [address] [place], [address] Platelet mean volume (Bld) [Entitic vol] 10.3 fL Normal 6.2-12.0 [facility] Comment on above: Order Comment: Order Date: 01/29/25 Order Info: [id number] - CBC Order Info: [id number] - SED Performed By: #### L 100.0500, L101.9900, L3100.3450, L7000.5300, L500.4050, L501.9520, L501.6710 #### [facility] [address] [place], [address] Platelets (Bld) [#/Vol] 195 10*3/uL Normal 150-450 [facility] Comment on above: Order Comment: Order Date: 01/29/25 Order Info: [id number] - CBC Order Info: 64064-3 - SED Performed By: #### L 100.0500, L101.9900, L3100.3450, L7000.5300, L500.4050, L501.9520, L501.6710 #### [facility] [address] [place], [address] RBC (Bld) [#/Vol] 4.79 10*6/uL Normal 4.6-6.[address] [facility] Comment on above: Order Comment: Order Date: 01/29/25 Order Info: 07986-2 - CBC Order Info: [id number] - SED Performed By: #### L 100.0500, L101.9900, L3100.3450, L7000.5300, L500.4050, L501.9520, L501.6710 #### [facility] [address] [place], [place], [address] RDW SD 41.1 fl Normal 35.1-43.9 [facility] Comment on above: Order Comment: Order Date: 01/29/25 Order Info: [id number] - CBC Order Info: [id number] - SED Performed By: #### L 100.0500, L101.9900, L3100.3450, L7000.5300, L500.4050, L501.9520, L501.6710 #### [facility] [address] [place], [place], [address] WBC (Bld) [#/Vol] 5.8 10*3/uL Normal 4.4-11.0 [facility] Comment on above: Order Comment: Order Date: 01/29/25 Order Info: [id number] - CBC Order Info: 67697-1 - SED Performed By: #### L 100.0500, L101.9900, L3100.3450, L7000.5300, L500.4050, L501.9520, L501.6710 #### [facility] [address] [place], [place], [address] CRPon 01-29-2025 C-REACTIVE PROT < 3.00 Normal 0.0-3.0 [facility] Comment on above: Order Comment: Order Date: 01/29/25 Order Info: 0786-1 - CMP Order Info: [id number] - CRP Order Info: 3016-3 - TSH Performed By: #### L 100.0500, L101.9900, L3100.3450, L7000.5300, L500.4050, L501.9520, L501.6710 #### [facility] [address] [place], [place], [address] Carbon dioxide, total [Moles /volume] in Central venous bloodOrdered By: Sony Griffith on 01-29-2025 CO2 [Moles/Vol] 21.6 mmol/L 21.0-32.0 [facility] Chloride assayOrdered By: Bernardo Griffith on 01-29-2025 Chloride [Moles/Vol] 106 mmol/L 98-108 [facility] Comprehensive Metabolic Prof ilon 01-29-2025 Albumin [Mass/Vol] 4.0 g/dL Normal 3.4-4.8 [facility] Comment on above: Order Comment: Order Date: 01/29/25 Order Info: 0786-1 - CMP Order Info: [id number] - CRP Order Info: 3 - TSH Performed By: #### L 100.0500, L101.9900, L3100.3450, L7000.5300, L500.4050, L501.9520, L501.6710 #### [facility] [address] [place], [address] Albumin/Globulin [Mass ratio] 1.6 {ratio} Normal 0.9-2.4 [facility] Comment on above: Order Comment: Order Date: 01/29/25 Order Info: 0786- - CMP Order Info: [id number] - CRP Order Info: 3015-08 - TSH Performed By: #### L 100.0500, L101.9900, L3100.3450, L7000.5300, L500.4050, L501.9520, L501.6710 #### [facility] [address] [place], [place], [address] ALK PHOS 52 U/L Normal 40-129 [facility] Comment on above: Order Comment: Order Date: 01/29/25 Order Info: 0786-1 - CMP Order Info: [id number] - CRP Order Info: 3 - TSH Performed By: #### L 100.0500, L101.9900, L3100.3450, L7000.5300, L500.4050, L501.9520, L501.6710 #### [facility] [address] [place], [place], [address] ALT [Catalytic activity/Vol] 41 U/L Normal <=46 [facility] Comment on above: Order Comment: Order Date: 01/29/25 Order Info: 785-1 - CMP Order Info: [id number] - CRP Order Info: 3 - TSH Performed By: #### L 100.0500, L101.9900, L3100.3450, L7000.5300, L500.4050, L501.9520, L501.6710 #### [facility] [address] [place], [address] AST [Catalytic activity/Vol] 28 U/L Normal <=37 [facility] Comment on above: Order Comment: Order Date: 01/29/25 Order Info: 785- - CMP Order Info: [id number] - CRP Order Info: 3 - TSH Performed By: #### L 100.0500, L101.9900, L3100.3450, L7000.5300, L500.4050, L501.9520, L501.6710 #### [facility] [address] [place], [address] Bilirubin [Mass/Vol] 0.55 mg/dL Normal 0.00-1.30 [facility] Comment on above: Order Comment: Order Date: 01/29/25 Order Info: 785-1 - CMP Order Info: 79469-6 - CRP Order Info: 3 - TSH Performed By: #### L 100.0500, L101.9900, L3100.3450, L7000.5300, L500.4050, L501.9520, L501.6710 #### [facility] [address] [place], [address] BUN/CRE 24.4 RATIO High 10-20 [facility] Comment on above: Order Comment: Order Date: 01/29/25 Order Info: 0786-1 - CMP Order Info: [id number] - CRP Order Info: 3 - TSH Performed By: #### L 100.0500, L101.9900, L3100.3450, L7000.5300, L500.4050, L501.9520, L501.6710 #### [facility] [address] [place], [address] Calcium [Mass/Vol] 9.7 mg/dL Normal 7.6-11.0 [facility] Comment on above: Order Comment: Order Date: 01/29/25 Order Info: 0786-1 - CMP Order Info: [id number] - CRP Order Info: 3 - TSH Performed By: #### L 100.0500, L101.9900, L3100.3450, L7000.5300, L500.4050, L501.9520, L501.6710 #### [facility] [address] [place], [address] Chloride [Moles/Vol] 106 mmol/L Normal 98-108 [facility] Comment on above: Order Comment: Order Date: 01/29/25 Order Info: 07 - CMP Order Info: 73808-1 - CRP Order Info: 3015-08 - TSH Performed By: #### L 100.0500, L101.9900, L3100.3450, L7000.5300, L500.4050, L501.9520, L501.6710 #### [facility] [address] [place], [address] CO2 [Moles/Vol] 21.6 mmol/L Normal 21.0-32.0 [facility] Comment on above: Order Comment: Order Date: 01/29/25 Order Info: 0786-1 - CMP Order Info: 88930-0 - CRP Order Info: 3 - TSH Performed By: #### L 100.0500, L101.9900, L3100.3450, L7000.5300, L500.4050, L501.9520, L501.6710 #### [facility] [address] [place], [address] Creatinine [Mass/Vol] 0.69 mg/dL Low 0.70-1.20 [facility] Comment on above: Order Comment: Order Date: 01/29/25 Order Info: 0786-1 - CMP Order Info: [id number] - CRP Order Info: 3 - TSH Performed By: #### L 100.0500, L101.9900, L3100.3450, L7000.5300, L500.4050, L501.9520, L501.6710 #### [facility] [address] [place], [place], [id number] GAP 12 Normal 5-15 [facility] Comment on above: Order Comment: Order Date: 01/29/25 Order Info: 0786- - CMP Order Info: [id number] - CRP Order Info: 3015-08 - TSH Performed By: #### L 100.0500, L101.9900, L3100.3450, L7000.5300, L500.4050, L501.9520, L501.6710 #### [facility] [address] [place], [address] GFR/1.73 sq M.predicted among non-blacks MDRD (S/P/Bld) [Vol rate/Area] 104 mL/min/{1.73_m2} Normal >60 [facility] Comment on above: Order Comment: Order Date: 01/29/25 Order Info: 0786-1 - CMP Order Info: 00415-0 - CRP Order Info: 3015-08 - TSH Result Comment: mL/m in/1.73m2 CKD-EPI Creatinine Equation (2020) Performed By: #### L 100.0500, L101.9900, L3100.3450, L7000.5300, L500.4050, L501.9520, L501.6710 #### [facility] [address] [place], [address] Globulin (S) [Mass/Vol] 2.4 g/dL Normal 2.2-4.2 [facility] Comment on above: Order Comment: Order Date: 01/29/25 Order Info: 785-06 - CMP Order Info: - CRP Order Info: 3015-08 - TSH Performed By: #### L 100.0500, L101.9900, L3100.3450, L7000.5300, L500.4050, L501.9520, L501.6710 #### [facility] [address] [place], [address] Glucose [Mass/Vol] 91 mg/dL Normal 70-99 [facility] Comment on above: Order Comment: Order Date: 01/29/25 Order Info: 785-06 - CMP Order Info: - CRP Order Info: 3015-08 - TSH Performed By: #### L 100.0500, L101.9900, L3100.3450, L7000.5300, L500.4050, L501.9520, L501.6710 #### [facility] [address] [place], [address] Potassium [Moles/Vol] 4.2 mmol/L Normal 3.3-5.1 [facility] Comment on above: Order Comment: Order Date: 01/29/25 Order Info: 785-06 - CMP Order Info: - CRP Order Info: 3015-08 - TSH Performed By: #### L 100.0500, L101.9900, L3100.3450, L7000.5300, L500.4050, L501.9520, L501.6710 #### [facility] [address] [place], [address] Sodium [Moles/Vol] 140 mmol/L Normal 133-145 [facility] Comment on above: Order Comment: Order Date: 01/29/25 Order Info: 785-06 - CMP Order Info: - CRP Order Info: [id number] - TSH Performed By: #### L 100.0500, L101.9900, L3100.3450, L7000.5300, L500.4050, L501.9520, L501.6710 #### [facility] [address] [place], [place], [id number] T PROT 6.4 g/dL Normal 5.9-8.4 [facility] Comment on above: Order Comment: Order Date: 01/29/25 Order Info: [id number] - CMP Order Info: [id number] - CRP Order Info: [id number] - TSH Performed By: #### L 100.0500, L101.9900, L3100.3450, L7000.5300, L500.4050, L501.9520, L501.6710 #### [facility] [address] [place], [address] Urea nitrogen [Mass/Vol] 17 mg/dL Normal 4-19 [facility] Comment on above: Order Comment: Order Date: 01/29/25 Order Info: [id number] - CMP Order Info: [id number] - CRP Order Info: [id number] - TSH Performed By: #### L 100.0500, L101.9900, L3100.3450, L7000.5300, L500.4050, L501.9520, L501.6710 #### [facility] [address] [place], [place], [id number] Erythrocyte Sed Rateon 01-29 SED RATE 9 mm/hr Normal 0-20 [facility] Comment on above: Order Comment: Order Date: 01/29/25 Order Info: [id number] - CBC Order Info: [id number] - SED Performed By: #### L 100.0500, L101.9900, L3100.3450, L7000.5300, L500.4050, L501.9520, L501.6710 #### [facility] [address] [place], [place], [id number] Erythrocyte distribution wid th ratioOrdered By: Sony Griffith on 01-29-2025 Erythrocyte distribution width (RBC) [Ratio] 12.5 % 11.6-14.6 [facility] Erythrocyte distribution wid th standard deviationOrdered By: Sony Griffith on 01-29-2025 Erythrocyte distribution width (RBC) [Ratio] 41.1 fl 35.1-43.9 [facility] Erythrocyte sedimentation ra teOrdered By: Sony Griffith on 01-29-2025 ESR (Bld) [Velocity] 9 mm/h 0-20 [facility] Free G4Kcvbspl By: Sony rice on 01-29-2025 Free T3 [Mass/Vol] 17.6 pg/mL High 2.18-3.98 [facility] Glomerular filtration rate ( GFR) estimation/1.73 sq m using serum, plasma, or whole bOrdered By: Sony Griffith on 01-29-2025 GFR/1.73 sq M.predicted among non-blacks MDRD (S/P/Bld) [Vol rate/Area] 104 mL/min/{1.73_m2} >60 [facility] Comment on above: mL/min/1.73m2 CKD-EP I Creatinine Equation (2020) Hematocrit Auto (Bld) [Volum e fraction]Ordered By: Sony Griffith on 01-29-2025 Hematocrit (Bld) [Volume fraction] 43.3 % 40-54 [facility] Hemoglobin measurementOrdere d By: Sony Griffith on 01-29-2025 Hemoglobin (Bld) [Mass/Vol] 14.8 g/dL 13.0-16.5 [facility] - Chemistry and C hemistry - challengeOrdered By: Sony Griffith on 01-29-2025 AST [Catalytic activity/Vol] 28 U/L <38 [facility] MCV (mean corpuscular volume ) determinationOrdered By: Sony Griffith on 01-29-2025 MCV (RBC) [Entitic vol] 90.4 fL 80-94 [facility] Mean corpuscular hemoglobin (MCH) determinationOrdered By: Sony Griffith on 01-29-2025 MCH (RBC) [Entitic mass] 30.9 pg 27.0-32.0 [facility] Mean corpuscular hemoglobin concentration (MCHC) determinationOrdered By: Sony Griffith on 01-29-2025 MCHC (RBC) [Mass/Vol] 34.2 g/dL 32-36 [facility] Mean platelet volume determi nationOrdered By: Sony Griffith on 01-29-2025 Platelet mean volume (Bld) [Entitic vol] 10.3 fL 6.2-12.0 [facility] No Panel InformationOrdered By: Sony Griffith on 01-29-2025 Addendum Document Comment . [facility] Comment on above: The SPE pattern appe ars unremarkable. Evidence ofmonoclonal protein is not apparent. Platelet countOrdered By: Bernardo Griffith on 01-29-2025 Platelets (Bld) [#/Vol] 195 10*3/uL 150-450 [facility] Potassium measurement (mass/ volume)Ordered By: Sony Griffith on 01-29-2025 Potassium (Unsp spec) [Mass/Vol] 4.2 mmol/L 3.3-5.1 [facility] Protein Fractions Elph [Inte rp]Ordered By: Sony Griffith on 01-29-2025 Protein Fractions [Interp] Comment . [facility] Comment on above: Protein electrophore sis scan will follow via computer,mail, or nurse wound care delivery. RBC Auto (Bld) [#/Vol]Ordere d By: Sony Griffith on 01-29-2025 RBC (Bld) [#/Vol] 4.79 10*6/uL 4.6-6.[address] [facility] Serum albumin to globulin ra mat by protein electrophoresisOrdered By: Sony Griffith on 01-29-2025 Albumin/Globulin Elph [Mass ratio] 1.6 0.7-1.7 [facility] Serum creatinine measurement (mass/volume)Ordered By: Sony Griffith on 01-29-2025 Creatinine [Mass/Vol] 0.69 mg/dL Low 0.70-1.20 [facility] Serum globulin measurementOr dered By: Sony Griffith on 01-29-2025 Globulin (S) [Mass/Vol] 2.4 g/dL 2.2-3.9 [facility] Serum glucose measurement (m ass/volume)Ordered By: Sony Griffith on 01-29-2025 Glucose [Mass/Vol] 91 mg/dL 70-99 [facility] Serum or plasma C reactive p rotein measurement (mass/volume)Ordered By: Sony Griffith on 01-29-2025 CRP [Mass/Vol] mg/L 0.0-3.0 [facility] Serum or plasma alanine obando otransferase (ALT) measurementOrdered By: Sony Griffith on 01-29-2025 ALT [Catalytic activity/Vol] 41 U/L <47 [facility] Serum or plasma albumin tony urement (mass/volume)Ordered By: Sony Griffith on 01-29-2025 Albumin [Mass/Vol] 4.0 g/dL 3.4-4.8 [facility] Serum or plasma albumin/glob ulin mass ratioOrdered By: Sony Griffith on 01-29-2025 Albumin/Globulin [Mass ratio] 1.6 {ratio} 0.9-2.4 [facility] Serum or plasma alkaline michael sphatase measurementOrdered By: Sony Griffith on 01-29-2025 ALP [Catalytic activity/Vol] 52 U/L 40-129 [facility] Serum or plasma beta globuli n measurement by electrophoresis (mass/volume)Ordered By: Sony Griffith on 01-29-2025 Beta globulin Elph [Mass/Vol] 0.8 g/dL 0.7-1.3 [facility] Serum or plasma calcium tony urement (mass/volume)Ordered By: Sony Griffith on 01-29-2025 Calcium [Mass/Vol] 9.7 mg/dL 7.6-11.0 [facility] Serum or plasma protein tony urement (mass/volume)Ordered By: Sony Griffith on 01-29-2025 Protein [Mass/Vol] 6.2 g/dL 6.0-8.5 [facility] Serum or plasma protein mono clonal measurement by electrophoresis (mass/volume)Ordered By: Sony Griffith on 01-29-2025 Protein.monoclonal Elph [Mass/Vol] Not Observed g/dL Not Observed [facility] Serum or plasma thyroperoxid ase antibody assay (units/volume)Ordered By: Sony Griffith on 01-29-2025 TPO Ab Qn 70 [IU]/mL High 0-34 [facility] Comment on above: Performed at: [address] [id number] Director: Malick Carlson PhD, Phone: [phone] Serum or plasma urea nitroge n measurement (mass/volume)Ordered By: Sony Griffith on 01-29-2025 Urea nitrogen [Mass/Vol] 17 mg/dL 4-19 [facility] Sodium levelOrdered By: Sony Griffith on 01-29-2025 Sodium [Moles/Vol] 140 mmol/L 133-145 [facility] T4 freeOrdered By: Sony rice on 01-29-2025 Free T4 [Mass/Vol] 5.00 ng/dL High 0.76-1.46 [facility] TSH DL <= 0.005 mIU/L QnOrde red By: Sony Griffith on 01-29-2025 TSH Qn 0.005 uIU/mL Low 0.300-4.200 [facility] Thyroid Stim Hormone (TSH)on 01-29-2025 TSH 0.005 uIU/mL Low 0.300-4.200 [facility] Comment on above: Order Comment: Order Date: 01/29/25 Order Info: [id number] - CMP Order Info: [id number] - CRP Order Info: [id number] - TSH Performed By: #### L 100.0500, L101.9900, L3100.3450, L7000.5300, L500.4050, L501.9520, L501.6710 #### [facility] [address] [place], [place], [id number] ThyroxineOrdered By: Sony perry on 01-29-2025 T4 [Mass/Vol] 18.2 ug/dL High 4.5-12.1 [facility] Total proteinOrdered By: Constance Griffith on 01-29-2025 Protein [Mass/Vol] 6.4 g/dL 5.9-8.4 [facility] White blood cell (WBC) count Ordered By: Sony Griffith on 01-29-2025 WBC (Bld) [#/Vol] 5.8 10*3/uL 4.4-11.0 [facility] Anion gap in Serum or Plasma Ordered By: Sony Griffith on 11-28-2024 Anion gap [Moles/Vol] 10 mmol/L 5-15 [facility] BUN/creatinine ratioOrdered By: Sony Griffith on 11-28-2024 Urea nitrogen/Creatinine [Mass ratio] 19.7 mg/mg 10-20 [facility] Bilirubin, totalOrdered By: Sony Griffith on 11-28-2024 Bilirubin [Mass/Vol] 0.74 mg/dL 0.00-1.30 [facility] Calculated very low density lipoprotein (VLDL) cholesterol measurementOrdered By: Sony Griffith on 11-28-2024 Calculated very low density lipoprotein (VLDL) cholesterol measurement 21 mg/dL 5-40 [facility] Carbon dioxide, total [Moles /volume] in Central venous bloodOrdered By: Sony Griffith on 11-28-2024 CO2 [Moles/Vol] 25.2 mmol/L 21.0-32.0 [facility] Chloride assayOrdered By: Bernardo Griffith on 11-28-2024 Chloride [Moles/Vol] 104 mmol/L 98-108 [facility] Comprehensive Metabolic Prof ilon 11-28-2024 Albumin [Mass/Vol] 4.6 g/dL Normal 3.4-4.8 [facility] Comment on above: Order Comment: Order Date: 11/28/24 Order Info: [id number] - CMP Order Info: [id number] - LIPID Order Info: [id number] - PSA Performed By: #### L 500.4100, L500.4050 #### [facility] [address] [facility] [place] [id number] Albumin/Globulin [Mass ratio] 2.0 {ratio} Normal 0.9-2.4 [facility] Comment on above: Order Comment: Order Date: 11/28/24 Order Info: [id number] - CMP Order Info: [id number] - LIPID Order Info: [id number] - PSA Performed By: #### L 500.4100, L500.4050 #### [facility] [address] [place], [address] ALK PHOS 50 U/L Normal 40-129 [facility] Comment on above: Order Comment: Order Date: 11/28/24 Order Info: [id number] - CMP Order Info: [id number] - LIPID Order Info: [id number] - PSA Performed By: #### L 500.4100, L500.4050 #### [facility] [address] [place], [address] ALT [Catalytic activity/Vol] 29 U/L Normal <=46 [facility] Comment on above: Order Comment: Order Date: 11/28/24 Order Info: 86-1 - CMP Order Info: [id number] - LIPID Order Info: [id number] - PSA Performed By: #### L 500.4100, L500.4050 #### [facility] [address] [place], [address] AST [Catalytic activity/Vol] 26 U/L Normal <=37 [facility] Comment on above: Order Comment: Order Date: 11/28/24 Order Info: 86-1 - CMP Order Info: [id number] - LIPID Order Info: [id number] - PSA Performed By: #### L 500.4100, L500.4050 #### [facility] [address] [place], [address] Bilirubin [Mass/Vol] 0.74 mg/dL Normal 0.00-1.30 [facility] Comment on above: Order Comment: Order Date: 11/28/24 Order Info: 86-1 - CMP Order Info: [id number] - LIPID Order Info: [id number] - PSA Performed By: #### L 500.4100, L500.4050 #### [facility] [address] [place], [address] BUN/CRE 19.7 RATIO Normal 10-20 [facility] Comment on above: Order Comment: Order Date: 11/28/24 Order Info: [id number] - CMP Order Info: [id number] - LIPID Order Info: [id number] - PSA Performed By: #### L 500.4100, L500.4050 #### [facility] [address] [place], [address] Calcium [Mass/Vol] 9.5 mg/dL Normal 7.6-11.0 [facility] Comment on above: Order Comment: Order Date: 11/28/24 Order Info: 86-1 - CMP Order Info: [id number] - LIPID Order Info: [id number] - PSA Performed By: #### L 500.4100, L500.4050 #### [facility] [address] [place], [address] Chloride [Moles/Vol] 104 mmol/L Normal 98-108 [facility] Comment on above: Order Comment: Order Date: 11/28/24 Order Info: 86-1 - CMP Order Info: [id number] - LIPID Order Info: [id number] - PSA Performed By: #### L 500.4100, L500.4050 #### [facility] [address] [place], [address] CO2 [Moles/Vol] 25.2 mmol/L Normal 21.0-32.0 [facility] Comment on above: Order Comment: Order Date: 11/28/24 Order Info: [id number] - CMP Order Info: [id number] - LIPID Order Info: [id number] - PSA Performed By: #### L 500.4100, L500.4050 #### [facility] [address] [place], [address] Creatinine [Mass/Vol] 0.97 mg/dL Normal 0.70-1.20 [facility] Comment on above: Order Comment: Order Date: 11/28/24 Order Info: 86-1 - CMP Order Info: [id number] - LIPID Order Info: [id number] - PSA Performed By: #### L 500.4100, L500.4050 #### [facility] [address] [place], [address] GAP 10 Normal 5-15 [facility] Comment on above: Order Comment: Order Date: 11/28/24 Order Info: [id number] - CMP Order Info: [id number] - LIPID Order Info: [id number] - PSA Performed By: #### L 500.4100, L500.4050 #### [facility] [address] [place], [address] GFR/1.73 sq M.predicted among non-blacks MDRD (S/P/Bld) [Vol rate/Area] 88 mL/min/{1.73_m2} Normal >60 [facility] Comment on above: Order Comment: Order Date: 11/28/24 Order Info: [id number] - CMP Order Info: [id number] - LIPID Order Info: [id number] - PSA Result Comment: mL/m in/1.73m2 CKD-EPI Creatinine Equation (2020) Performed By: #### L 500.4100, L500.4050 #### [facility] [address] [place], [address] Globulin (S) [Mass/Vol] 2.2 g/dL Normal 2.2-4.2 [facility] Comment on above: Order Comment: Order Date: 11/28/24 Order Info: [id number] - CMP Order Info: [id number] - LIPID Order Info: [id number] - PSA Performed By: #### L 500.4100, L500.4050 #### [facility] [address] [place], [address] Glucose [Mass/Vol] 88 mg/dL Normal 70-99 [facility] Comment on above: Order Comment: Order Date: 11/28/24 Order Info: [id number]- - CMP Order Info: [id number] - LIPID Order Info: [id number] - PSA Performed By: #### L 500.4100, L500.4050 #### [facility] [address] [place], [address] Potassium [Moles/Vol] 4.0 mmol/L Normal 3.3-5.1 [facility] Comment on above: Order Comment: Order Date: 11/28/24 Order Info: [id number] - CMP Order Info: [id number] - LIPID Order Info: [id number] - PSA Performed By: #### L 500.4100, L500.4050 #### [facility] [address] [place], [place], [id number] Sodium [Moles/Vol] 140 mmol/L Normal 133-145 [facility] Comment on above: Order Comment: Order Date: 11/28/24 Order Info: [id number] - CMP Order Info: [id number] - LIPID Order Info: [id number] - PSA Performed By: #### L 500.4100, L500.4050 #### [facility] [address] [place], [address] T PROT 6.8 g/dL Normal 5.9-8.4 [facility] Comment on above: Order Comment: Order Date: 11/28/24 Order Info: [id number] - CMP Order Info: [id number] - LIPID Order Info: [id number] - PSA Performed By: #### L 500.4100, L500.4050 #### [facility] [address] [place], [address] Urea nitrogen [Mass/Vol] 19 mg/dL Normal 4-19 [facility] Comment on above: Order Comment: Order Date: 11/28/24 Order Info: [id number] - CMP Order Info: [id number] - LIPID Order Info: [id number] - PSA Performed By: #### L 500.4100, L500.4050 #### [facility] [address] [place], [address] Glomerular filtration rate ( GFR) estimation/1.73 sq m using serum, plasma, or whole bOrdered By: Sony Griffith on 11-28-2024 GFR/1.73 sq M.predicted among non-blacks MDRD (S/P/Bld) [Vol rate/Area] 88 mL/min/{1.73_m2} >60 [facility] Comment on above: mL/min/1.73m2 CKD-EP I Creatinine Equation (2020) LDL calc ser/plasOrdered By: Sony Griffith on 11-28-2024 Cholesterol in LDL [Mass/Vol] 139 mg/dL [facility] Comment on above: Xexpkudurs=571-355 m g/dL & Higher Bcqd=207 mg/dL or greater Laboratory - Chemistry and C hemistry - challengeOrdered By: Sony Griffith on 11-28-2024 AST [Catalytic activity/Vol] 26 U/L <38 [facility] Lipid Profileon 11-28-2024 CHOL:HDL 4.55 Normal [facility] Comment on above: Order Comment: Order Date: 11/28/24 Order Info: [id number] - CMP Order Info: [id number] - LIPID Order Info: [id number] - PSA Performed By: #### L 500.4100, L500.4050 #### [facility] [address] [place], [place], [id number] Cholesterol [Mass/Vol] 205 mg/dL High <=200 [facility] Comment on above: Order Comment: Order Date: 11/28/24 Order Info: [id number] - CMP Order Info: [id number] - LIPID Order Info: [id number] - PSA Result Comment: Chol esterol level, Desirable <200 mg/dL Borderline high cholesterol 200-239 mg/dL High cholesterol >=240 mg/dL Recommendations of the NCEP Adult Treatment Panel for the following risk-cutoff thresholds for the [place] population. Performed By: #### L 500.4100, L500.4050 #### [facility] [address] [place], [place], [address] Cholesterol in HDL [Mass/Vol] 45 mg/dL Normal [facility] Comment on above: Order Comment: Order Date: 11/28/24 Order Info: [id number] - CMP Order Info: [id number] - LIPID Order Info: [id number] - PSA Result Comment: Marnie onal Cholesterol Education Program (NCEP) guidelines: <40 mg/dL: Low HDL-cholesterol (major risk factor for CHD) >= 60 mg/dL: High HDL-cholesterol (negative risk factor for CHD) HDL-cholesterol is affected by a number of factors, e.g. smoking, exercise, hormones, sex and age. Performed By: #### L 500.4100, L500.4050 #### [facility] [address] [place], [address] Cholesterol in LDL [Mass/Vol] 139 mg/dL Normal [facility] Comment on above: Order Comment: Order Date: 11/28/24 Order Info: [id number] - CMP Order Info: [id number] - LIPID Order Info: [id number] - PSA Result Comment: Bord yydvgo=429-272 mg/dL Higher Ilso=911 mg/dL or greater Performed By: #### L 500.4100, L500.4050 #### [facility] [address] [place], [address] Cholesterol in VLDL [Mass/Vol] 21 mg/dL Normal 5-40 [facility] Comment on above: Order Comment: Order Date: 11/28/24 Order Info: 07 - CMP Order Info: [id number] - LIPID Order Info: [id number] - PSA Performed By: #### L 500.4100, L500.4050 #### [facility] [address] [place], [address] Triglyceride [Mass/Vol] 107 mg/dL Normal [facility] Comment on above: Order Comment: Order Date: 11/28/24 Order Info: [id number] - CMP Order Info: [id number] - LIPID Order Info: [id number] - PSA Result Comment: The drugs N-Acetylcysteine and Metamizole may falsely depress this assay. Normal range: <150 mg/dL Borderline High: 150-199 mg/dL High: 200-499 mg/dL Very High: >500 mg/dL Performed By: #### L 500.4100, L500.4050 #### [facility] [address] [place], [address] PSA,Total - Annual Screenon 11-28-2024 PSA,TOT SCREEN 1.01 ng/mL Normal 0.02-4.00 [facility] Comment on above: Order Comment: Order Date: 11/28/24 Order Info: [id number] - CMP Order Info: [id number] - LIPID Order Info: [id number] - PSA [...] Performed By: #### L 500.4100, L500.4050 #### [facility] [address] [place], [address] Potassium measurement (mass/ volume)Ordered By: Sony Griffith on 11-28-2024 Potassium (Unsp spec) [Mass/Vol] 4.0 mmol/L 3.3-5.1 [facility] Screening total cholesterol/ high density lipoprotein (HDL) cholesterol ratioOrdered By: Sony Griffith on 11-28-2024 Cholesterol.total/Choleste rol in HDL [Mass ratio] 4.55 {ratio} [facility] Serum creatinine measurement (mass/volume)Ordered By: Sony Griffith on 11-28-2024 Creatinine [Mass/Vol] 0.97 mg/dL 0.70-1.20 [facility] Serum globulin measurementOr dered By: Sony Griffith on 11-28-2024 Globulin (S) [Mass/Vol] 2.2 g/dL 2.2-4.2 [facility] Serum glucose measurement (m ass/volume)Ordered By: Sony Griffith on 11-28-2024 Glucose [Mass/Vol] 88 mg/dL 70-99 [facility] Serum or plasma alanine obando otransferase (ALT) measurementOrdered By: Sony Griffith on 11-28-2024 ALT [Catalytic activity/Vol] 29 U/L <47 [facility] Serum or plasma albumin tony urement (mass/volume)Ordered By: Sony Griffith on 11-28-2024 Albumin [Mass/Vol] 4.6 g/dL 3.4-4.8 [facility] Serum or plasma albumin/glob ulin mass ratioOrdered By: Sony Griffith on 11-28-2024 Albumin/Globulin [Mass ratio] 2.0 {ratio} 0.9-2.4 [facility] Serum or plasma alkaline michael sphatase measurementOrdered By: Sony Griffith on 11-28-2024 ALP [Catalytic activity/Vol] 50 U/L 40-129 [facility] Serum or plasma calcium tony urement (mass/volume)Ordered By: Sony Griffith on 11-28-2024 Calcium [Mass/Vol] 9.5 mg/dL 7.6-11.0 [facility] Serum or plasma cholesterol in HDL measurement (mass/volume)Ordered By: Sony Griffith on 11-28-2024 Cholesterol in HDL [Mass/Vol] 45 mg/dL >40 [facility] Comment on above: National Cholesterol Education Program (NCEP) guidelines:<40 mg/dL: Low HDL-cholesterol (major risk factor for CHD)>= 60 mg/dL: High HDL-cholesterol (negative risk factor for CHD)HDL-cholesterol is affected by a number of factors, e.g. smoking, exercise, hormones, sex and age. Serum or plasma cholesterol measurement (mass/volume)Ordered By: Sony Griffith on 11-28-2024 Cholesterol [Mass/Vol] 205 mg/dL High <201 [facility] Comment on above: Cholesterol level, D esirable <200 mg/dLBorderline high cholesterol 200-239 mg/dLHigh cholesterol >=240 mg/dLRecommendations of the NCEP Adult Treatment Panel for the following risk-cutoff thresholds for the [place] population. Serum or plasma urea nitroge n measurement (mass/volume)Ordered By: Sony Griffith on 11-28-2024 Urea nitrogen [Mass/Vol] 19 mg/dL 4-19 [facility] Sodium levelOrdered By: Sony Griffith on 11-28-2024 Sodium [Moles/Vol] 140 mmol/L 133-145 [facility] Total proteinOrdered By: Constance Griffith on 11-28-2024 Protein [Mass/Vol] 6.8 g/dL 5.9-8.4 [facility] Triglycerides measurementOrd ered By: Sony Griffith on 11-28-2024 Triglyceride [Mass/Vol] 107 mg/dL <199 [facility] Comment on above: The drugs N-Acetylcy steine and Metamizole may falsely depress this assay. Normal range: <150 mg/dLBorderline High: 150-199 mg/dLHigh: 200-499 mg/dLVery High: >500 mg/dL Basophil percentageOrdered B y: Sony Griffith on 01-12-2023 Cholesterol [Mass/Vol] 215 mg/dL <200 [facility] Comment on above: <200 mg/dL Desirable 200-240 mg/dL Borderline >240 mg/dL High Risk Triglyceride [Mass/Vol] 100 mg/dL <199 [facility] Comment on above: The drugs N-Acetylcy steine and Metamizole may falsely depress this assay.Serum Triglycerides Reference Interval Normal <150 mg/dL Borderline high 150 - 199 mg/dL High 200 - 499 mg/dL Very High > or = 500 mg/dL No Panel InformationOrdered By: Sony Griffith on 01-12-2023 Estimated GFR (MDRD) Amer 101 mL/min >60 [facility] Comment on above: GFR Calc Estimated GFR (MDRD) Non-Af Amer 83 mL/min >60 [facility] Comment on above: Non- GFR Calc Prostate Specific Antigen Screen 2.31 ng/mL 0.00-4.00 [facility] Comment on above: This test was perfor med using the TPSA assay method for the[employer] chemistry system. Values obtained with differentassay methods cannot be used interchangably.When changing PSA assays in the course of monitoring apatient, additional sequential testing should be carriedout to confirm baseline values. Serum or plasma cholesterol in HDL measurement (mass/volume)Ordered By: Sony Griffith on 01-12-2023 Cholesterol in HDL [Mass/Vol] 48 mg/dL >40 [facility] Comment on above: The drugs N-Acetylcy steine and Metamizole may falsely depress this assay. Reference Range HDL <40 mg/dL Low HDL Cholesterol HDL >or= 60 mg/dL High HDL Cholesterol Serum or plasma cholesterol in VLDL measurement (mass/volume)Ordered By: Sony Griffith on 01-12-2023 Cholesterol in VLDL [Mass/Vol] 20 mg/dL 5-40 [facility] Serum or plasma creatinine m easurement (mass/volume)Ordered By: Sony Griffith on 01-12-2023 Creatinine [Mass/Vol] 0.97 mg/dL 0.70-1.30 [facility] Comment on above: The validity of the calculated GFR & GFRAA in patients over 70 years has not been determined. Clinical correlation is essential. Serum or plasma low density lipoprotein (LDL) cholesterol measurement (mass/volume)Ordered By: Sony Griffith on 01-12-2023 Cholesterol in LDL [Mass/Vol] 147 mg/dL 0-130 [facility] CORONAVIRUS PCR [CCL]on 02-27 REF LAB REPORT Negative Normal [facility] Comment on above: Performed By: #### [id number] #### [facility],[address] [place] [address] COVID 19 Result DATA CONTROL CLERK Negative Normal [facility] Comment on above: Result Comment: Nega tive for COVID19 (SARS CoV2) by PCR. This test was developed and its performance characteristics determined by [facility] [place]. This test has been authorized by FDA under an Emergency Use Authorization (EUA). This test has been validated in accordance with the FDA's Guidance Document Policy for Diagnostics Testing in Laboratories Certified to Perform High Complexity Testing under CLIA prior to Emergency use Authorization for Coronavirus Disease 2019 during the Public Health Emergency issued on August 26, 2019. [address] [place] [address] Deshaun Randolph III, M.D. [id number] Performed By: #### 2 [id number] #### [address] [address] COVID 19 Source DATA CONTROL CLERK Nasopharyngeal Swab Normal [facility] Comment on above: Performed By: #### [id number] #### [facility],[address] [place] [address] Coronavirus 2019on 0 COVID 19 Result DATA CONTROL CLERK Normal Negative for COVID19 (SARS CoV2) by PCR. [facility] Comment on above: Result Comment: Nega tive for This test was developed and its performance characteristics determined by [facility] [place]. This test has been authorized by FDA [...] developed and its performance characteristics determined by [facility] [place]. This test has been authorized by FDA [...] developed and its performance characteristics determined by [facility] [place]. This test has been authorized by FDA [...] 2019. Coronavirus 2019on 0 COVID 19 Source DATA CONTROL CLERK DATA CONTROL CLERK Normal [facility] Vital Signs Date Time Vital Sign Value Performing Clinician Thierno cancino 02-05-2025 10:17-040 Body height 175.[address] Sony Griffith MD Work Phone: [facility] 02-05-2025 10:17-0400 Body mass index (BMI) [Ratio] 25.7 kg/m2 Dr. Sony Griffith MD Work Phone: [facility] 02-05-2025 10:17-0400 Body weight 79.[address] Sony Griffith MD Work Phone: [facility] 02-05-2025 10:17-0400 Diastolic blood pressure 91 mm[Hg] Dr. Sony Griffith MD Work Phone: [facility] 02-05-2025 10:17-0400 Heart rate 83 /min Dr. Sony Griffith MD Work Phone: [facility] 02-05-2025 10:17-0400 SaO2% (BldA) [Mass fraction] 97 % Dr. Sony Griffith MD Work Phone: [facility] 02-05-2025 10:17-0400 Systolic blood pressure 153 mm[Hg] Dr. Sony Griffith MD Work Phone: [facility] Encounters Encounter Date Encounter Type Care Provider Facility Start: 02-13-2025 End: 02-13-[address] Sony Griffith MD Work Phone: -[facility] Start: 02-13-2025 End: 02-13-[address] Hal Earl MD -[facility] Work Phone: Start: 02-13-2025 End: 02-13-2025 ambulatory Sony Griffith Facility:[facility] Start: 02-05-2025 End: 02-05-[address] Hal Earl MD -[facility] Work Phone: Start: 02-05-2025 End: 02-05-[address] Sony Griffith MD Work Phone: [facility] Start: 01-31-2025 End: 01-31-[address] Sony Griffith MD Work Phone: -[facility] Start: 01-31-2025 End: 01-31-[address] Sony Griffith MD -[facility] Work Phone: Start: 01-31-2025 End: 01-31-2025 ambulatory Sony Griffith Facility:[facility] Start: 01-29-2025 End: 01-29-[address] Sony Griffith MD Work Phone: -[facility] [place] Start: 01-29-2025 End: 01-29-[address] Sony Griffith MD -[facility] Start: 01-29-2025 End: 01-29-2025 ambulatory Sony Griffith Facility:[facility] Start: 11-28-2024 End: 11-28-[address] Sony Griffith MD Work Phone: [facility] Work Phone: Start: 11-28-2024 End: 11-28-[address] Sony Griffith MD -[facility] Start: 11-28-2024 End: 11-28-2024 ambulatory Sony Griffith Facility:[facility] Start: 01-12-2023 End: 01-12-2023 ambulatory [facility] Work Phone: Start: 01-12-2023 End: 01-12-2023 Patient encounter procedure [facility] [place] Work Phone: Start: 03-22-2020 End: 03-22-2020 Patient encounter procedure BLAKE Siddiqi ROWENA [facility] Procedures Date Procedure Procedure Detail Performing Clinician Start: 01-31-[address] Sony Griffith MD Work Phone: Comment on above: According to the [facility] [employer],the reference interval for Thyroglobulin (TG) should berelated to euthyroid patients and not for patients whounderwent thyroidectomy. TG reference intervals for thesepatients depend on the residual mass of the thyroid tissueleft after surgery. Establishing a post-operative baselineis recommended. The assay limit of quantitation is 0.1ng/mLThyroglobulin measured by [facility] [place] [employer] Start: 01-31-[address] Sony Griffith MD Work Phone: Comment on above: Thyroglobulin Antibo dy measured by [facility] CoulterMethodologyIt should be noted that the presence of thyroglobulinantibodies may not be pathogenic nor diagnostic, especiallyat very low levels. The assay job trainer has found thatfour percent of individuals without evidence of thyroiddisease or autoimmunity will have positive TgAb levels upto 4 IU/mL. Start: 01-29-2025 Electrophoresis: [id number] Dr. Snoy Griffith MD Work Phone: Start: 01-29-2025 Electrophoresis: [id number] Dr. Sony Griffith MD Work Phone: Start: [...] Comment on above: According to the [facility] [employer] Clinical [employer]ochemistry,the reference interval for Thyroglobulin (TG) should berelated to euthyroid patients and not for patients whounderwent thyroidectomy. TG reference intervals for thesepatients depend on the residual mass of the thyroid tissueleft after surgery. Establishing a post-operative baselineis recommended. The assay limit of quantitation is 0.1ng/mLThyroglobulin measured by [facility] [place] [employer] Start: 01-29-[address] Sony Griffith MD Work Phone: Comment on above: Thyroglobulin Antibo dy measured by [facility] CoulterMethodologyIt should be noted that the presence of thyroglobulinantibodies may not be pathogenic nor diagnostic, especiallyat very low levels. The assay job trainer has found thatfour percent of individuals without [...] Care Activity Detail Author T4 free measurement [facility] Triiodothyronine, free measurement [facility] Immunizations Immunization Date Immunization Notes Care Provider Fa jorge 05-30-2021 Covid (Moderna) [facility] Payers Date Payer Category Payer Self-pay [id number] 2024 Unknown [id number] 1960 Unknown [id number] [id number] [id number] Unknown [id number] [facility] [id number] Unknown [id number] 2.16.8 [id number] Unknown [id number] 2.16.8 [id number] Unknown [id number] 2.16.8 [id number] Unknown [id number] 2.16.8 [id number] Unknown [id number] 2.16.8 [id number] Social History Date Type Detail Facility Start: 08-01-2021 Tobacco smoking stat [facility] Unknown if ever smoked [facility] Start: 1960 Sex Assigned At Male [facility] Start: 08-01-2021 [facility] Evaluation note 02-05-2025 Note Date & Type Note Facility 02-05-2025 Evaluation note Diagnosis Onset Date Resolution Graves disease acute January 10:20am [facility] Work Phone: Evaluation note Note Date & Type Note Facility Evaluation note No assessment information availa ble [facility] Work Phone: Evaluation note Note Date & Type Note Facility Evaluation note Diagnosis Onset Date Resolution Graves disease acute January 10:20am [facility] Work Phone: Reason for referral (narrative) Note Date & Type Note Facility Reason for referral (narrative) No reason for referral information available [facility] Work Phone: Summary Purpose Family History No [...] Will No August 01 12:55pm 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 [facility] provides no warranty or guarantee of the accuracy or completeness of information in this document.
[2025-03-30 10:43] LABS: Hematocrit 43.7 % (40-54); Hemoglobin 14.4 g/dL (13.0-16.5); Immature Granulocytes Count 0.020 X10^3/uL (0.0-0.0); Mean Corp Hgb Conc 33.0 g/dL (32-36); Mean Corpuscular Volume 90.9 fL (80-94); Mean Platelet Vol. 9.8 fl (6.2-12.0); NRBC Flagged by Analyzer 0 % (0-5); Platelet Count 218 K/mm3 (150-450); RBC Distribution Width CV 14.0 % (11.6-14.6); RBC Distribution Width SD 46.8 fl (35.1-43.9); Red Blood Count 4.81 M/mm3 (4.6-6.2); White Blood Count 5.9 K/mm3 (4.4-11.0)
[2025-03-30 10:58] LABS: AST(SGOT) 19 U/L (<=37); Alanine Aminotransfer ALT/SGPT 19 U/L (<=46); Albumin, Serum 4.2 g/dL (3.4-4.8); Alkaline Phosphatase 71 U/L (40-129); Anion Gap 11 (5-15); BUN 13 mg/dL (4-19); BUN/Creat Ratio 14.8 RATIO (10-20); Calcium,Total 9.2 mg/dL (7.6-11.0); Carbon Dioxide 24.3 mmol/L (21.0-32.0); Chloride 103 mmol/L (98-108); Globulin 2.3 g/dL (2.2-4.2); Glucose 88 mg/dL (70-99); Potassium 4.2 mmol/L (3.3-5.1)
[2025-04-02 08:34] LABS: Free T3 3.1 pg/mL (2.18-3.98)
== END | disposition home or self-care (01) ==
LOC: MTLAB 07:38
PROVIDERS: PCP Family Medicine; Referring Provider Internal Medicine Endocrinology, Diabetes & Metabolism; Visit Provider Internal Medicine Endocrinology, Diabetes & Metabolism
DX: E05.00 Thyrotoxicosis with diffuse goiter without thyrotoxic crisis or storm (principal)
CPT/HCPCS: 36415; 80053; 84439; 84481; 85025

== ENCOUNTER → 2025-06-11 | Outpatient (CLI) | payer OTHER, SELFPAY ==
[2025-06-11 12:39] LABS: Free T3 4.0 pg/mL (2.18-3.98)
== END | disposition home or self-care (01) ==
LOC: MTLAB 11:06
PROVIDERS: PCP Family Medicine; Referring Provider Internal Medicine Endocrinology, Diabetes & Metabolism; Visit Provider Internal Medicine Endocrinology, Diabetes & Metabolism
DX: E05.00 Thyrotoxicosis with diffuse goiter without thyrotoxic crisis or storm (principal)
CPT/HCPCS: 36415; 84439; 84443; 84481